=== PATIENT | male | born 1980 | race Hispanic/Latino ===

== ENCOUNTER 2019-03-31 21:27 | Emergency (ER) | payer OTHER ==
[2019-03-31 22:28] LABS: BASOPHILS % (AUTO) 0.7 % (0.0-5.0); EOSINOPHILS % (AUTO) 2.2 % (0.0-8.0); HEMATOCRIT 48.3 % (42-54); LYMPHOCYTES % (AUTO) 36.1 % (21.0-51.0); MEAN CORPUSCULAR HEMOGLOBIN 30.6 pg (27.0-33.0); MEAN CORPUSCULAR HGB CONC 34.2 g/dL (32.0-36.0); MEAN CORPUSCULAR VOLUME 89.7 fL (79-99); MONOCYTES % (AUTO) 7.1 % (3.0-13.0); NEUTROPHILS % (AUTO) 53.9 % (40.0-77.0); NUCLEATED RED BLOOD CELLS 0.3 % (0.0-0.19); PLATELET COUNT (AUTO) 237 K/uL (130-400); RED BLOOD CELL COUNT(AUTO) 5.38 MIL/uL (4.50-6.20); RED CELL DISTRIBUTION WIDTH 15.2 % (11.0-15.5); WHITE BLOOD COUNT (AUTO) 9.9 K/uL (4.8-10.8)
[2019-03-31 22:42] LABS: CREATININE 0.7 mg/dL (0.5-1.5); POTASSIUM 3.1 mmol/L (3.5-5.1)
[2019-03-31 22:47] LABS: ALBUMIN 3.7 g/dL (3.5-5.0); BILIRUBIN,TOTAL 0.5 mg/dL (0.2-1.0)
[2019-03-31 22:50] LABS: APPEARANCE,URINE Clear (CLEAR); BILIRUBIN,URINE Negative (NEGATIVE); COLOR,URINE Yellow (YELLOW); GLUCOSE, URINE (UA) Negative (NEGATIVE); KETONES,URINE Negative (NEGATIVE); LEUKOCYTE ESTERASE ,URINE Negative (NEGATIVE); NITRATE,URINE Negative (NEGATIVE); OCCULT BLOOD,URINE Negative (NEGATIVE); PH,URINE 5.5 (5.0-8.0); PROTEIN,URINE Negative (NEGATIVE); UROBILINOGEN,URINE 0.2 mg/dL (0.2-1.0)
[2019-03-31] MEDS ORDERED: MAGNESIUM OXIDE 400 MG TABLET PO ONE (22:54)
[2019-03-31] MEDS ORDERED: POTASSIUM CHLORIDE 20 MEQ ERTAB PO ONE (22:54)
[2019-03-31 22:58] LABS: AMPHET/METH SCREEN,URINE NEGATIVE (NEGATIVE); BARBITURATE SCREEN, URINE NEGATIVE (NEGATIVE); BENZODIAZEPINES SCREEN,URINE NEGATIVE (NEGATIVE); CANNABINOID SCREEN,URINE NEGATIVE (NEGATIVE); COCAINE SCREEN,URINE NEGATIVE (NEGATIVE); OPIATE SCREEN,URINE NEGATIVE (NEGATIVE); PHENCYCLIDINE SCREEN,URINE NEGATIVE (NEGATIVE)
== END 2019-04-01 00:06 | disposition home or self-care (01) ==
LOC: EDH 21:27
DX: E16.2 Hypoglycemia, unspecified (principal); E87.6 Hypokalemia; K85.90 Acute pancreatitis without necrosis or infection, unspecified; R94.5 Abnormal results of liver function studies; F10.10 Alcohol abuse, uncomplicated; Y90.9 Presence of alcohol in blood, level not specified
CPT/HCPCS: 36415; 71045; 80053; 80305; 81003; 83690; 85025; 93005; 99285; G0480

== ENCOUNTER → 2019-04-23 | Outpatient (CLI) | payer OTHER | END | disposition home or self-care (01) | LOC: RAH 07:40 | PROVIDERS: ATTEND Family Medicine | DX: K76.0 Fatty (change of) liver, not elsewhere classified (principal); K85.90 Acute pancreatitis without necrosis or infection, unspecified | CPT/HCPCS: 76700 ==

== ENCOUNTER 2023-02-15 10:06 | Emergency (ER) | payer OTHER ==
[~2023-02-15] VITALS: Ht 182.9 cm; Wt 113.4 kg
[2023-02-15 10:44] LABS: BASOPHILS % (AUTO) 0.6 % (0.0-5.0); EOSINOPHILS % (AUTO) 1.8 % (0.0-8.0); LYMPHOCYTES % (AUTO) 17.8 % (21.0-51.0); MEAN CORPUSCULAR HEMOGLOBIN 30.9 pg (27.0-33.0); MEAN CORPUSCULAR HGB CONC 33.6 g/dL (32.0-36.0); MEAN CORPUSCULAR VOLUME 92.1 fL (79-99); NEUTROPHILS % (AUTO) 72.5 % (40.0-77.0); PLATELET COUNT (AUTO) 168 K/uL (130-400); RED BLOOD CELL COUNT(AUTO) 6.08 MIL/uL (4.50-6.20); RED CELL DISTRIBUTION WIDTH 14.7 % (11.0-15.5); WHITE BLOOD COUNT (AUTO) 6.6 K/uL (4.8-10.8)
[2023-02-15 10:54] LABS: CREATININE 0.9 mg/dL (0.5-1.5); POTASSIUM 4.5 mmol/L (3.5-5.1)
[2023-02-15 10:59] LABS: ALBUMIN 4.2 g/dL (3.5-5.0); TOTAL PROTEIN, SERUM 8.2 g/dL (6.0-8.3)
[2023-02-15] MEDS ORDERED: METH-662 PO (12:46)
[2023-02-15] MEDS ORDERED: METH4TAB3 PO (12:46)
[2023-02-15] MEDS ORDERED: SOLU-MEDROL 125MG VIAL IVP ONE (13:00)
[2023-02-15] MEDS ORDERED: PREDNISONE 20 MG TABLET PO ONE (14:00)
== END 2023-02-15 13:45 | disposition home or self-care (01) ==
LOC: EDH 10:06
DX: M54.31 Sciatica, right side (principal); I10 Essential (primary) hypertension
CPT/HCPCS: 36415; 72100; 80053; 85025; 85378; 93005; 93971

== ENCOUNTER 2024-02-20 10:30 | Emergency (ER) | payer OTHER ==
[~2024-02-20] VITALS: Ht 182.9 cm; Wt 122.5 kg
[~2024-02-20 10:30] MED LIST: METH-662 PO; METH4TAB3 PO
[2024-02-20 11:11] LABS: BASOPHILS # (AUTO) 0.05 K/uL (0.00-0.20); BASOPHILS % (AUTO) 0.7 % (0.0-5.0); EOSINOPHILS # (AUTO) 0.06 K/uL (0.00-0.70); EOSINOPHILS % (AUTO) 0.9 % (0.0-8.0); HEMATOCRIT 56.1 % (42-54); IMMATURE GRANULOCYTE ABSOLUTE 0.01 K/uL (0-1); LYMPHOCYTES # (AUTO) 1.3 K/uL (1.0-4.8); LYMPHOCYTES % (AUTO) 19.1 % (21.0-51.0); MEAN CORPUSCULAR HEMOGLOBIN 33.1 pg (27.0-33.0); MEAN CORPUSCULAR HGB CONC 35.3 g/dL (32.0-36.0); MEAN CORPUSCULAR VOLUME 93.7 fL (79-99); MONOCYTES # (AUTO) 0.5 K/uL (0.1-1.0); MONOCYTES % (AUTO) 7.4 % (3.0-13.0); NEUTROPHILS % (AUTO) 71.8 % (40.0-77.0); PLATELET COUNT (AUTO) 196 K/uL (130-400); RED BLOOD CELL COUNT(AUTO) 5.99 MIL/uL (4.50-6.20); WHITE BLOOD COUNT (AUTO) 6.9 K/uL (4.8-10.8)
[2024-02-20 11:13] LABS: CREATININE 0.9 mg/dL (0.5-1.3); POTASSIUM 4.2 mmol/L (3.5-5.1)
[2024-02-20 11:17] LABS: ALBUMIN 3.8 g/dL (3.5-5.0); BILIRUBIN,TOTAL 1.2 mg/dL (0.2-1.0); TOTAL PROTEIN, SERUM 7.9 g/dL (6.0-8.3)
[2024-02-20 12:14] LABS: APPEARANCE,URINE CLEAR (CLEAR); BILIRUBIN,URINE NEGATIVE (NEGATIVE); COLOR,URINE YELLOW (YELLOW); GLUCOSE, URINE (UA) NEGATIVE (NEGATIVE); KETONES,URINE NEGATIVE (NEGATIVE); LEUKOCYTE ESTERASE ,URINE NEGATIVE Leu/uL (NEGATIVE); NITRATE,URINE NEGATIVE (NEGATIVE); OCCULT BLOOD,URINE NEGATIVE (NEGATIVE); PH,URINE 7.5 (5.0-8.0); PROTEIN,URINE NEGATIVE (NEGATIVE); UROBILINOGEN,URINE 3 mg/dL (0.2-1.0)
[2024-02-20 12:15] LABS: ADD UA MICROSCOPIC YES
[2024-02-20 12:16] LABS: SQUAMOUS EPITHELIAL CELL,UR RARE /HPF (0-2); WBC,URINE 0-1 /HPF (0-1)
[2024-02-20 13:39] VITALS: BP 160/90; PULSE 80; RESP 16; O2SAT 98
== END 2024-02-20 13:46 | disposition home or self-care (01) ==
LOC: EDH 10:30
DX: I10 Essential (primary) hypertension (principal); Z79.899 Other long term (current) drug therapy
CPT/HCPCS: 36415; 71045; 80053; 81001; 84484; 85025; 93005

== ENCOUNTER 2025-02-19 12:36 | Emergency (ER) | payer OTHER ==
[~2025-02-19] VITALS: Ht 182.9 cm; Wt 135.6 kg
--- NOTE | 2025-02-19 12:51 | ERN ---
ED Note History of Present Illness Stated Complaint: CHEST TIGHTNESS Chief Complaint: Hypertension Time Seen by MD: 12:39 Dictation: PATIENT IS A 44-YEAR-OLD MALE COMING IN TODAY WITH COMPLAINTS OF HYPERTENSION ON HIS BLOOD PRESSURE AT HOME SHORTNESS A BREATH IN HIS CHEST FEELING TIGHT. HE STATES THE ONSET OF THE CHEST TIGHTNESS WAS EARLIER THIS MORNING. STATES HE DOES HAVE A HISTORY OF HYPERTENSION AND IS TAKING SOME MEDICATIONS AT A LEFTOVER FROM HIS PRIMARY CARE DOCTOR WHO LAST YEAR. HE ALSO STATES HE WENT TO A [facility] ON TUESDAY FEELING THE SAME WAY AND HAD SWABS DONE FOR FLU COVID AND STREP WITH A CHEST X-RAY. WAS GIVEN SOME STEROIDS AND BREATHING TREATMENTS AND STATES HE FELT BETTER ON TUESDAY. SAID THEN TUESDAY HE STARTED FEELING WORSE. Allergies: Coded Allergies: No Known Drug Allergies (Unverified Allergy, Unknown, 04/01/19) Home Meds Active Scripts Methocarbamol (Robaxin) 750 Mg Tab, 750 MG PO TID for 7 Days, #21 TAB Prov:DEEDEE THOMASON MD 02/15/23 Methylprednisolone (Medrol) 4 Mg Tab.ds.pk, 4 MG PO as directed on pack, #1 PACK Prov:DEEDEE THOMASON MD 02/15/23 Past Medical History Past Medical History: Hypertension, Other Additional Past Medical Hx: SLEEP APNEA Surgical History: None RN Note Reviewed/Agreed w/PFSH: Yes Review of System Dictation CONSTITUTIONAL: NEGATIVE EXCEPT FOR HPI HEAD/FACE: NEGATIVE EXCEPT FOR HPI EENT: NEGATIVE EXCEPT FOR HPI RESPIRATORY: NEGATIVE EXCEPT FOR HPI SOB/CHEST TIGHTNESS GASTROINTESTINAL/ABDOMINAL: NEGATIVE EXCEPT FOR HPI GENITOURINARY: NEGATIVE EXCEPT FOR HPI MUSCULOSKELETAL: NEGATIVE EXCEPT FOR HPI INTEGUMENTARY: NEGATIVE EXCEPT FOR HPI NEUROLOGICAL/PSYCH: NEGATIVE EXCEPT FOR HPI HEMATOLOGIC/LYMPHATIC: NEGATIVE EXCEPT FOR HPI ALL SYSTEMS NEGATIVE, EXCEPT NOTED ABOVE. 13 POINT REVIEW OF SYSTEMS ASSESSED AND ALL NEGATIVE EXCEPT FOR ABOVE. Initial Vital Sign VS Vital Signs Date Time Temp Pulse Resp B/P (MAP) Pulse Ox O2 Delivery O2 Flow Rate FiO2 02/19/25 12:38 98.8 105 20 183/105 95 Room Air 0 02/19/25 13:11 21 Physical Exam Dictation VITAL SIGNS REVIEWED GENERAL APPEARANCE: ALERT, ORIENTED X 3, MODERATE ACUTE DISTRESS, WELL DEVELOPED, NOURISHED. OBESE HEAD AND FACE: NON-TRAUMATIC. EYES: PERRL, PINK CONJUNCTIVAS, EYELID NO TRAUMA, ANTERIOR CHAMBER WITH ARCUS SENILIS. EARS: PINNAS INTACT AND NO SIGNS OF TRAUMA OR ERYTHEMA EAR CANALS CLEAR AND NO DISCHARGE TM NO ERYTHEMA NOSE: NO DISCHARGE, NO BLEEDING. OROPHARYNX: MOUTH NORMAL, TONGUE PINK, PHARYNX CLEAR,NO ERYTHEMA, TONSILS NO EXUDATES, NO ABSCESSES NOTED, MUCOUS MEMBRANE MOIST NECK: SUPPLE, NON-TENDER, NO THYROMEGALY, NO MASSES, NO JVD, NO BRUITS BREAST:DEFERRED CHEST:NO TENDERNESS, NO CREPITUS, NO PARADOXICAL MOVEMENT, NO RETRACTIONS LUNGS:CLEAR, BILATERAL BREATH SOUNDS CLEAR TO AUSCULTATION/DIMINISHED THROUGHOUT. HEART: REGULAR RATE, REGULAR RHYTHM, NO MURMUR, NO GALLOPS VASCULAR: NO PERIPHERAL EDEMA, ABDOMEN: SOFT, POSITIVE BOWEL SOUNDS, NONDISTENDED, NO GUARDING, NONTENDER, NO REBOUND, NO MASSES NO HEPATOMEGALY, NO SPLENOMEGALY, NO MONTGOMERY'S SIGN, NO HERNIAS. RECTAL: DEFERRED GENITAL: DEFERRED NEUROLOGICAL: NORMAL SPEECH, MOTOR FUNCTION INTACT, SENSORY FUNCTION INTACT MUSCULOSKELETAL: NECK NONTENDER, FULL RANGE OF MOTION, BACK NONTENDER, FULL RANG E OF MOTION, EXTREMITIES: NONTENDER, FULL RANGE OF MOTION SKIN: COLOR PINK, DRY, NO TURGOR, NO RASH, NO LACERATIONS, NO ABRASIONS, NO CONTUSIONS. LYMPHATIC: DEFERRED Results (Laboratory/Radiology) Laboratory/Radiology Laboratory Tests Test 02/19/25 12:56 White Blood Count 8.0 K/uL (4.8-10.8) Red Blood Count 5.40 MIL/uL (4.50-6.20) Hemoglobin 18.2 g/dL (14.0-18.0) H Hematocrit 53.2 % (42-54) Mean Corpuscular Volume 98.5 fL (79-99) Mean Corpuscular Hemoglobin 33.7 pg (27.0-33.0) H Mean Corpuscular Hemoglobin Concent 34.2 g/dL (32.0-36.0) Red Cell Distribution Width 15.8 % (11.0-15.5) H Platelet Count 180 K/uL (130-400) Mean Platelet Volume 9.3 fL (7.5-10.5) Immature Granulocyte % (Auto) 0.3 % (0-1) Neutrophils (%) (Auto) 67.2 % (40.0-77.0) Lymphocytes (%) (Auto) 22.7 % (21.0-51.0) Monocytes (%) (Auto) 7.9 % (3.0-13.0) Eosinophils (%) (Auto) 1.4 % (0.0-8.0) Basophils (%) (Auto) 0.5 % (0.0-5.0) Neutrophils # (Auto) 5.4 K/uL (1.8-7.7) Lymphocytes # (Auto) 1.8 K/uL (1.0-4.8) Monocytes # (Auto) 0.6 K/uL (0.1-1.0) Eosinophils # (Auto) 0.11 K/uL (0.00-0.70) Basophils # (Auto) 0.04 K/uL (0.00-0.20) Absolute Immature Granulocyte (auto 0.02 K/uL (0-1) Nucleated Red Blood Cells 0.0 % (0.0-0.19) Sodium Level 141 mmol/L (136-145) Potassium Level 3.7 mmol/L (3.5-5.1) Chloride Level 103 mmol/L (101-111) Carbon Dioxide Level 33 mmol/L (21-32) H Blood Urea Nitrogen 12 mg/dL (7-18) Creatinine 1.0 mg/dL (0.5-1.3) Glomerular Filtration Rate Calc 96 mL/min (>90) Random Glucose 129 mg/dL (70-105) H Total Calcium 8.6 mg/dL (8.5-10.1) Magnesium Level 2.10 mg/dL (1.80-2.40) Troponin I High Sensitivity 9 ng/L (4-75) B-Type Natriuretic Peptide 31 pg/mL (0-100) Labs Reviewed?: Yes EKG Comment: EKG NORMAL SINUS RHYTHM/HEART RATE 93/AXIS NORMAL TEST NO ED Course ED Course Orders Procedure Category Date Status Time Cbc With Differential LAB 02/19/25 Complete 12:43 B-Type Natriuretic LAB 02/19/25 Complete Peptide 12:43 12 Lead Ekg Tracing- EKG 02/19/25 Complete Technical 12:43 Magnesium LAB 02/19/25 Complete 12:43 Troponin I High LAB 02/19/25 Complete Sensitivity 12:43 Basic Metabolic Panel LAB 02/19/25 Complete 12:43 Aspirin 325mg Tab PHA 02/19/25 Complete (Aspirin 325mg Tab) 13:00 Nitroglycerin 0.4mg PHA 02/19/25 In Process Sl Tab (Nitrostat) 13:00 Methylprednisolone PHA 02/19/25 Complete Succ 125mg (Solu-Medr 13:00 Albuterol 0.083% PHA 02/19/25 Complete 2.5mg/3ml (Proventil 13:00 Chest 1vw RAD 02/19/25 Resulted 13:23 Current Medications Medications (Trade) Dose Ordered Sig/Jasmeet Route PRN Reason Start Time Stop Time Status Last Admin Dose Admin Albuterol Sulfate (Proventil 0.083% 2.5mg/3ml) 2.5MG ONCE ONCE IH 02/19/25 13:00 02/19/25 13:01 DC 02/19/25 13:25 Aspirin (Aspirin 325mg Tab) 325 mg ONCE ONCE PO 02/19/25 13:00 02/19/25 13:01 DC 02/19/25 12:54 Methylprednisolone Sodium Succinate (Solu-medROL 125MG) 125 mg ONCE ONCE IVP 02/19/25 13:00 02/19/25 13:01 DC 02/19/25 12:56 Nitroglycerin (Nitrostat) 0.4 mg AD PRN SL CHEST PAIN 02/19/25 13:00 03/21/25 12:59 02/19/25 12:54 Vital Signs Date Time Temp Pulse Resp B/P (MAP) Pulse Ox O2 Delivery O2 Flow Rate FiO2 02/19/25 13:25 94 18 02/19/25 13:11 105 20 124/67 95 Room Air* 0 21 02/19/25 12:38 98.8 105 20 183/105 95 Room Air 0 1400/PATIENT INFORMED OF CHEST X-RAY LABS EKG AND INTERVENTIONS FOR SHORTNESS A BREATH. HE STATES HE HAS A TOBACCO ABUSER AND HAS BEEN TRYING TO CUT BACK HOWEVER CONTINUES TO SMOKE. 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 HURD WITH BIOPSY. HE WAS ADVISED TO STOP SMOKING. CONTINUE USE ALBUTEROL AND WE WILL BE GIVEN BUDESONIDE AND LEVOFLOXACIN TO COVER MYCOPLASMA HEART Score Response (Comments) Value History: Low suspicion (0) 0 EKG: Normal 0 Risk Factors: 1-2 risk factors (+1) 1 Initial Troponin: Normal limit (0) 0 Total 1 Medical Decision Making MDM MDM: DIFFERENTIAL DIAGNOSIS: AMMONIA/BRONCHITIS/SARS COVID/ELECTROLYTE IMBALANCE/DEHYDRATION/ACS/AMI/HYPERTENSION/ RATIONALE: TESTS CONSIDERED AND ORDERED SECONDARY TO SHARED DECISION MAKING INCLUDE: CHF EKG/LABS/RADIOLOGY PREVIOUS OUTSIDE RECORDS REVIEWED: OLD ER VISITS. RISK OF COMPLICATION AND/OR MORBIDITY OR MORTALITY OF PATIENT MANAGEMENT: NONE MEDICATIONS-PER MEDICATION RECONCILIATION NEED FOR HOSPITALIZATION: PATIENT DOES NOT MEET CRITERIA FOR HOSPITALIZATION. NO NEED FOR EMERGENCY MAJOR/MINOR SURGERY: NO THERE ARE NO SOCIAL CONCERNS WITH THIS PATIENT. TOBACCO ABUSE PRESCRIPTION DRUG MANAGEMENT LEVOFLOXACIN/BUDESONIDE PRESCRIPTIONS WILL INCLUDE SYMPTOMATIC CARE PATIENT'S PRIOR EXTERNAL MEDICAL RECORDS FROM OTHER ER VISITS WERE REVIEWED BY ME INDICATED. PRIOR TESTING AND RESULTS FROM PREVIOUS VISITS WERE REVIEWED. PRIOR TESTS WERE TAKEN INTO ACCOUNT WITH MEDICAL DECISION MAKING AND RESOURCE UTILIZATION, INDEPENDENT HISTORIAN/HISTORIANS WERE USED TO OBTAIN COMPLETE MEDICAL HISTORY. I INDEPENDENTLY INTERPRETED THE TEST THAT WERE PERFORMED, RESULTS WERE REVIEWED BY ME AND CONSIDERED FINDINGS ON RADIOLOGY IF ORDERED. MEDICAL MANAGEMENT AND EXAMINATION INTERPRETATION DISCUSSIONS WERE HAD BY ME WITH OTHER QUALIFIED HEALTHCARE PROFESSIONALS INDICATED FOR THE PATIENT'S CARE. DX & DISP Disposition: Discharge Departure Impression: Primary Impression: Acute viral bronchitis Additional Impressions: Hyperglycemia, Dyspnea on exertion, Tobacco abuse Condition: Stable Scripts Budesonide (Pulmicort Flexhaler) 90 Mcg Aer.pow.ba 1 PUFF IH BID for 10 Days, #1 EACH 0 Refills Prov: KELIN SOTO MEDICAL SECRETARY TEACHER 02/19/25 Levofloxacin (Levofloxacin) 500 Mg Tablet 1 TAB PO DAILY for 10 Days, #10 TAB 0 Refills Prov: KELIN SOTO MEDICAL SECRETARY TEACHER 02/19/25 Additional Instructions: FOLLOW-UP WITH PRIMARY CARE PROVIDER IN 1 TO 2 DAYS. TAKE MEDICATIONS DIRECTED HERE IN THE EMERGENCY ROOM. OKAY TO CONTINUE HOME MEDICATIONS UNLESS OTHERWISE DISCUSSED DURING YOUR VISIT IN THE EMERGENCY ROOM TODAY. RETURN TO YOUR NEAREST EMERGENCY ROOM IF SYMPTOMS WORSEN OR IF THERE IS NO IMPROVEMENT. CALL 911 IF YOU NEED IMMEDIATE ASSISTANCE. TAKE TYLENOL OR MOTRIN [id number] NEEDED AND IF NO CONTRAINDICATIONS ARE PRESENT. INCREASE ORAL HYDRATION. A WOUND CULTURE OR URINE CULTURE WAS ORDERED HERE IN THE EM ERGENCY ROOM DEPARTMENT PLEASE FOLLOW-UP WITH PRIMARY CARE PROVIDER AND ADVISE THEM TO GET REPEAT PORTS FROM OUR FACILITY. IF YOU HAD ANY INESSA WRAP/SPLINTS THAT WERE APPLIED HERE, PLEASE DO NOT REMOVE THEM UNTIL YOU SEE YOUR PRIMARY CARE OR SPECIALTY. CONTINUE USING YOUR ALBUTEROL INHALER EVERY 4 HOURS WHILE AWAKE FOR THE NEXT THREE DAYS. USE PULMICORT INHALER DIRECTED FOR THE NEXT 10 DAYS TWICE A DAY. TAKE LEVAQUIN DIRECTED UNTIL GONE. CONTINUE ALL OTHER MEDICATIONS FROM YOUR VISIT TO THE URGENT CARE. FOLLOW UP WITH ONE OF THE DOCTORS ON THE LIST PROVIDED YOU IN THE NEXT SEVERAL DAYS FOR MANAGEMENT OF YOUR HIGH BLOOD PRESSURE AND FOLLOW UP Referrals: ASAEL HUNTER MEDICAL SECRETARY TEACHER (PCP) Time of Disposition: 13:58 I have reviewed the case, and I agree with, Diagnosis and Plan KELIN SOTO NP Feb 19, 2025 12:51
[2025-02-19] MEDS: NITROGLYCERIN 0.4 MG SL TAB SL PRN (12:54)
[2025-02-19] MEDS: ASPIRIN 325MG TAB PO ONE (12:54)
[2025-02-19] MEDS: Solu-medROL 125MG VIAL IVP ONE (12:56)
[2025-02-19 13:01] LABS: BASOPHILS # (AUTO) 0.04 K/uL (0.00-0.20); BASOPHILS % (AUTO) 0.5 % (0.0-5.0); EOSINOPHILS # (AUTO) 0.11 K/uL (0.00-0.70); EOSINOPHILS % (AUTO) 1.4 % (0.0-8.0); HEMATOCRIT 53.2 % (42-54); IMMATURE GRANULOCYTE ABSOLUTE 0.02 K/uL (0-1); LYMPHOCYTES # (AUTO) 1.8 K/uL (1.0-4.8); LYMPHOCYTES % (AUTO) 22.7 % (21.0-51.0); MEAN CORPUSCULAR HEMOGLOBIN 33.7 pg (27.0-33.0); MEAN CORPUSCULAR HGB CONC 34.2 g/dL (32.0-36.0); MEAN CORPUSCULAR VOLUME 98.5 fL (79-99); MONOCYTES # (AUTO) 0.6 K/uL (0.1-1.0); MONOCYTES % (AUTO) 7.9 % (3.0-13.0); NEUTROPHILS # (AUTO) 5.4 K/uL (1.8-7.7); NEUTROPHILS % (AUTO) 67.2 % (40.0-77.0); PLATELET COUNT (AUTO) 180 K/uL (130-400); RED CELL DISTRIBUTION WIDTH 15.8 % (11.0-15.5)
--- NOTE | 2025-02-19 13:01 | EKG ---
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
[2025-02-19 13:10] LABS: MAGNESIUM 2.1 mg/dL (1.80-2.40); POTASSIUM 3.7 mmol/L (3.5-5.1)
[2025-02-19 13:23] LABS: B-TYPE NATRIURETIC PEPTIDE 31 pg/mL (0-100)
[2025-02-19 13:25] VITALS: PULSE 94; RESP 18
[2025-02-19] MEDS: ALBUTEROL 0.083% 2.5 MG/3 ML INH IH ONE (13:25)
--- NOTE | 2025-02-19 13:50 | HMCIMG ---
CHEST 1VW REASON: SHORTNESS A BREATH COMPARISON: 6 02/20/2024 FINDINGS: Single view of the chest was obtained. Lungs are clear. Heart size is normal. There is no pulmonary vascular congestion. Mediastinum and bony thorax appear unremarkable. IMPRESSION: 1. Normal single view chest x-ray.
[2025-02-19] MEDS ORDERED: levoFLOXacin 500 MG TABLET PO ONE (14:00)
[2025-02-19] MEDS ORDERED: LEVO-70 PO (14:01)
[2025-02-19] MEDS ORDERED: BUDE90AE3 IH (14:01)
--- NOTE | 2025-02-19 14:02 | NUR ---
PATIENT VOICES RELIEF OF SYMPTOMS
[2025-02-19 14:04] VITALS: BP 149/88; PULSE 88; RESP 18; TEMP 98.8; O2SAT 97
== END 2025-02-19 14:14 | disposition home or self-care (01) ==
LOC: EDH 12:36
DX: J20.8 Acute bronchitis due to other specified organisms (principal); R73.9 Hyperglycemia, unspecified; R06.09 Other forms of dyspnea; I10 Essential (primary) hypertension; F17.200 Nicotine dependence, unspecified, uncomplicated; B97.89 Other viral agents as the cause of diseases classified elsewhere
CPT/HCPCS: 99285; 96374; 71045; 83735; 84484; 80048; 83880; 85025; 36415; 93005; 94640; J2919

== ENCOUNTER 2025-05-22 20:47 | Inpatient (IN) | payer OTHER ==
[~2025-05-22] VITALS: Ht 182.9 cm; Wt 130.4 kg
[~2025-05-22 20:47] MED LIST changes: +BUDE90AE3 IH; +LEVO-70 PO
[2025-05-22 21:12] LABS: IMMATURE GRANULOCYTE ABSOLUTE 0.07 K/uL (0-1); NUCLEATED RED BLOOD CELLS 0.0 % (0.0-0.19); PLATELET COUNT (AUTO) 226 K/uL (130-400); RED BLOOD CELL COUNT(AUTO) 5.26 MIL/uL (4.50-6.20); RED CELL DISTRIBUTION WIDTH 13.6 % (11.0-15.5); WHITE BLOOD COUNT (AUTO) 12.9 K/uL (4.8-10.8)
--- NOTE | 2025-05-22 21:15 | ERN ---
General Chief Complaint: Hypotension Stated Complaint: C/O ABD PAIN W/NAUSEA, CP EARLIER TODAY Time Seen by MD: 20:57 Source: patient, family History of Present Illness Initial Comments 45-year-old male with a past medical history of hypertension, obesity, and sleep apnea who comes in with severe abdominal pain, abdominal cramping and chest pain. Blood pressure measurements in the lobby of the ED showed him to be hypotensive 69/42 but normal heart rate. Patient is wondering if the hypotension is due to a recent change in his blood pressure medications. He was recently started on amlodipine. In the emergency room he is alert and oriented complaining mostly of abdominal pain tenderness especially in the flanks. He has been hypertensive over the last several days and was given clonidine once as a PRN. Timing/Duration: 24 hours Allergies: Coded Allergies: No Known Drug Allergies (Unverified Allergy, Unknown, 04/01/19) Home Meds Reported Medications Fluticasone Propion/Salmeterol (Fluticasone-Salmeterol 100-50) 100 Mcg-50 Mcg/Dose Blst.w.dev, 1 EACH IH BID 05/22/25 Trazodone HCl (Trazodone HCl) 50 Mg Tablet, 50 MG PO HS, TAB 05/22/25 Carvedilol (Coreg) 6.25 Mg Tablet, 6.25 MG PO BID, TAB 05/22/25 Amlodipine Besylate (Amlodipine Besylate) 2.5 Mg Tablet, 2.5 MG PO DAILY, TAB 05/22/25 Losartan Potassium (Losartan Potassium) 100 Mg Tablet, 100 MG PO BID, TAB 05/22/25 Hydrochlorothiazide (Hydrochlorothiazide) 25 Mg Tablet, 25 MG PO DAILY, TAB 05/22/25 Clonidine HCl (Clonidine HCl) 0.1 Mg Tablet, 0.1 MG PO TIDP PRN for IF SBP GREATER THAN 150, TAB 05/22/25 Discontinued Scripts Budesonide (Pulmicort Flexhaler) 90 Mcg Aer.pow.ba, 1 PUFF IH BID for 10 Days, #1 EACH 0 Refills Prov:KELIN SOTO NP 02/19/25 Levofloxacin (Levofloxacin) 500 Mg Tablet, 1 TAB PO DAILY for 10 Days, #10 TAB 0 Refills Prov:KELIN SOTO NP 02/19/25 Methocarbamol (Robaxin) 750 Mg Tab, 750 MG PO TID for 7 Days, #21 TAB Prov:DEEDEE THOMASON MD 02/15/23 Methylprednisolone (Medrol) 4 Mg Tab.ds.pk, 4 MG PO as directed on pack, #1 PACK Prov:DEEDEE THOMASON MD 02/15/23 Past Medical History Past Medical History: Hypertension, Other Medical History Other: HX OF SLEEP APNEA Past Surgical History: None Constitutional: (-) chills, (-) diaphoresis, (-) fever, (-) malaise, (-) weakness, (-) other documentation EENTM: (-) eye pain, (-) blurred vision, (-) tearing, (-) double vision, (-) ear pain, (-) ear discharge, (-) nose pain, (-) nose congestion, (-) throat pain, (-) Throat swelling, (-) mouth pain, (-) tooth pain, (-) mouth swelling, (-) other documentation Respiratory: (-) cough, (-) orthopnea, (-) short of breath, (-) stridor, (-) wheezing, (-) other documentation Cardiovascular: (+) chest pain Gastrointestinal/Abdominal: (+) nausea, (+) diarrhea, (+) abdominal pain Genitourinary: (-) penile discharge, (-) dysuria, (-) frequency, (-) hematuria, (-) pain, (-) other documentation Musculoskeletal: (+) Flank Pain Skin: (-) laceration, (-) contusion, (-) abrasion, (-) abscess, (-) rash, (-) change in color, (-) change in hair, (-) change in nails, (-) diaphoresis, (-) dryness, (-) other documentation Neuro: (-) altered mental status, (-) headache, (-) syncope, (-) paralysis, (-) numbness, (-) seizure, (-) pre-existing deficit, (-) tremors, (-) weakness, (-) dizziness, (-) slurred speech, (-) vertigo, (-) other documentation Physical Exam General Appearance: (+) moderate distress Orientation: (+) alert, (+) oriented x 3 Head/Face Trauma: No Eye: bilateral eye normal inspection, bilateral eye PERRL, bilateral eye EOMI Ear, Nose, Throat: (+) hearing grossly normal, (+) normal ENT inspection, (+) moist mucous membraine Neck: (+) normal inspection, (+) supple, (+) full range of motion Respiratory: (+) chest non-tender, (+) lungs clear, (+) well ventilated Heart: (+) regular, (+) no gallop Vascular: (+) no edema, (+) normal peripheral pulse, (+) no JVD Gastrointestinal: (+) soft, (+) bowel sound present, (+) distended, (+) tender Results Laboratory and Microbiology Lab and Micro Result Laboratory Tests Test 05/22/25 21:05 05/22/25 22:51 White Blood Count 12.9 K/uL (4.8-10.8) H Red Blood Count 5.26 MIL/uL (4.50-6.20) Hemoglobin 17.9 g/dL (14.0-18.0) Hematocrit 50.4 % (42-54) Mean Corpuscular Volume 95.8 fL (79-99) Mean Corpuscular Hemoglobin 34.0 pg (27.0-33.0) H Mean Corpuscular Hemoglobin Concent 35.5 g/dL (32.0-36.0) Red Cell Distribution Width 13.6 % (11.0-15.5) Platelet Count 226 K/uL (130-400) Mean Platelet Volume 9.6 fL (7.5-10.5) Immature Granulocyte % (Auto) 0.5 % (0-1) Neutrophils (%) (Auto) 63.3 % (40.0-77.0) Lymphocytes (%) (Auto) 22.1 % (21.0-51.0) Monocytes (%) (Auto) 10.7 % (3.0-13.0) Eosinophils (%) (Auto) 2.9 % (0.0-8.0) Basophils (%) (Auto) 0.5 % (0.0-5.0) Neutrophils # (Auto) 8.2 K/uL (1.8-7.7) H Lymphocytes # (Auto) 2.9 K/uL (1.0-4.8) Monocytes # (Auto) 1.4 K/uL (0.1-1.0) H Eosinophils # (Auto) 0.38 K/uL (0.00-0.70) Basophils # (Auto) 0.07 K/uL (0.00-0.20) Absolute Immature Granulocyte (auto 0.07 K/uL (0-1) Nucleated Red Blood Cells 0.0 % (0.0-0.19) Sodium Level 123 mmol/L (136-145) L Potassium Level 3.8 mmol/L (3.5-5.1) Chloride Level 84 mmol/L (101-111) *L Carbon Dioxide Level 33 mmol/L (21-32) H Blood Urea Nitrogen 28 mg/dL (7-18) H Creatinine 2.1 mg/dL (0.5-1.3) H Glomerular Filtration Rate Calc 39 mL/min (>90) Random Glucose 91 mg/dL (70-105) Lactic Acid Level 1.8 mmol/L (0.8-2.5) Total Calcium 9.1 mg/dL (8.5-10.1) Total Bilirubin 1.2 mg/dL (0.2-1.0) H Aspartate Amino Transf (AST/SGOT) 69 U/L (10-37) H Alanine Aminotransferase (ALT/SGPT) 70 U/L (12-78) Alkaline Phosphatase 77 U/L (50-136) Troponin I High Sensitivity 7 ng/L (4-75) Total Protein 8.0 g/dL (6.0-8.3) Albumin 3.9 g/dL (3.5-5.0) Procalcitonin 0.49 ng/mL (0.05-0.5) Urine Color LIGHT-YELLOW (YELLOW) Urine Appearance CLEAR (CLEAR) Urine pH 5.5 (5.0-8.0) Urine Specific [place] 1.004 (1.001-1.031) Urine Protein NEGATIVE mg/dL (NEGATIVE) Urine Glucose (UA) NEGATIVE mg/dL (NEGATIVE) Urine Ketones NEGATIVE mg/dL (NEGATIVE) Urine Occult Blood NEGATIVE (NEGATIVE) Urine Nitrate NEGATIVE (NEGATIVE) Urine Bilirubin NEGATIVE mg/dL (NEGATIVE) Urine Urobilinogen 0.2 mg/dL (0.2-1.0) Urine Leukocyte Esterase NEGATIVE Luz/uL MDM MDM: Differential diagnosis: Intra-abdominal catastrophe such as peptic ulcer perforation, gastroenteritis, electrolyte abnormalities, dehydration, Rationale: Tests considered and ordered secondary to shared decision making include: Previous outside records reviewed: Old ER visits. Risk of complication and/or morbidity or mortality of patient management: None Medications-Per medication reconciliation Need for hospitalization: Patient does meet criteria for hospitalization. Need for emergency major/minor surgery: No There are no social concerns with this patient. Prescription drug management Prescriptions will include symptomatic care Patient's prior external medical records from other ER visits were reviewed by me as indicated. Prior testing and results from previous visits were reviewed. Prior tests were taken into account with medical decision making and resource utilization, independent historian/historians were used to obtain complete medical history. I independently interpreted the test that were performed, results were reviewed by me and considered findings on radiology if ordered. Upright chest x-ray shows no free air CT scan of abdomen shows no free air, hepatomegaly, normal pancreas. Electrolytes show possible fatty liver with a transaminitis and an elevated bilirubin, in addition patient has hyponatremia hypochloremia and has an acute kidney injury with elevated BUN and creatinine. Patient's pain has resolved with fluids and and pain medications. Now he feels just tired. I will give him another bolus of normal saline. I have discussed the patient with the hospitalists and they have agreed to admit him. ED Course Orders Procedure Category Date Status Time 12 Lead Ekg Tracing- EKG 05/22/25 Logged Technical 20:58 Cbc With Differential LAB 05/22/25 Complete 20:58 Comprehensive LAB 05/22/25 Complete Metabolic Panel 20:58 Lactic Acid LAB 05/22/25 Complete 20:58 Procalcitonin LAB 05/22/25 Complete 20:58 Troponin I High LAB 05/22/25 Complete Sensitivity 20:58 Urinalysis Profile LAB 05/22/25 Complete 20:58 Lactated Ringers PHA 05/22/25 Complete 1000ml (Lactated 20:58 Morphine 2mg Syg PHA 05/22/25 Complete (Morphine 2mg Syg) 21:00 Chest 1vw RAD 05/22/25 Resulted 21:15 Orphenadrine Citrate PHA 05/22/25 Complete (Norflex) 21:30 Ondansetron 4mg Inj PHA 05/22/25 Complete (Zofran 4mg Inj) 21:30 0.9%Nacl 1000ml (Ns PHA 05/22/25 Complete 1000ml) 23:00 Ct Abdomen W/O CT 05/22/25 Taken Contrast 23:13 Nicotine 21mg Patch PHA 05/22/25 Complete (Nicoderm) 23:30 Ct Abdomen/Pelvis W/O CT 05/23/25 Logged Contrast 00:05 Current Medications Medications (Trade) Dose Ordered Sig/Jasmeet Route PRN Reason Start Time Stop Time Status Last Admin Dose Admin Lactated Ringer's (Lactated Ringers 1000ml) 1,000 ml BOLUS STAT IV 05/22/25 20:58 05/22/25 21:01 DC 05/22/25 21:19 Morphine Sulfate (morPHINE 2MG SYG) 2 mg ONCE ONCE IVP 05/22/25 21:00 05/22/25 21:01 DC 05/22/25 21:19 Nicotine (Nicoderm) 21 mg ONCE ONCE TD 05/22/25 23:30 05/22/25 23:32 DC Ondansetron HCl (zoFRAN 4MG INJ) 4 mg ONCE ONCE IVP 05/22/25 21:30 05/22/25 21:31 DC 05/22/25 21:22 Orphenadrine Citrate (Norflex) 60 mg ONCE ONCE IVP 05/22/25 21:30 05/22/25 21:31 DC 05/22/25 21:22 Sodium Chloride 1,000 ml @ 0 mls/hr ONCE ONCE IV 05/22/25 23:00 05/22/25 23:01 DC Vital Signs Date Time Temp Pulse Resp B/P (MAP) Pulse Ox O2 Delivery O2 Flow Rate FiO2 05/23/25 00:02 98.4 64 18 99/58 99 Room Air* 0 05/22/25 23:05 98.4 76 19 106/52 99 Room Air* 0 05/22/25 21:48 98.4 82 20 86/48 97 Room Air* 0 05/22/25 21:14 98.6 78 18 103/52 98 Room Air* 0 05/22/25 20:49 97.3 76 20 69/42 94 Room Air DX & DISP Disposition: Inpatient Departure Impression: Primary Impression: Episode of hypertension Additional Impressions: Tobacco abuse, Acute kidney injury, Transaminitis, Hyperbilirubinemia Condition: Stable Referrals: HOLDEN AUSTIN MD (PCP) KATHERINE RANDALL MD May 22, 2025 21:15
[2025-05-22] MEDS: LACTATED RINGERS 1000ML IV STA (21:19)
[2025-05-22] MEDS: ORPHENADRINE 60MG/2ML IVP ONE (21:22)
[2025-05-22 21:39] LABS: ASPARTATE AMINOTRANSFERASE 69.0 U/L (10-37); CREATININE 2.1 mg/dL (0.5-1.3); GLOMERULAR FILTR. RATE CALC 39.0 mL/min (>90); GLUCOSE,RANDOM 91.0 mg/dL (70-105); SODIUM SERUM 123.0 mmol/L (136-145); TOTAL PROTEIN, SERUM 8.0 g/dL (6.0-8.3); UREA NITROGEN, BLOOD 28.0 mg/dL (7-18)
[2025-05-22] MEDS ORDERED: HYDR25TA PO (21:43)
[2025-05-22] MEDS ORDERED: LOSA100T59 PO (21:43)
[2025-05-22] MEDS ORDERED: CLON0.1T PO (21:43)
[2025-05-22] MEDS ORDERED: CARV6.2579 PO (21:45)
[2025-05-22] MEDS ORDERED: AMLO2.5T4 PO (21:45)
[2025-05-22] MEDS ORDERED: TRAZ-185 PO (21:45)
[2025-05-22] MEDS ORDERED: FLUT1BLS11 IH (21:46)
--- NOTE | 2025-05-22 22:39 | HMCIMG ---
EXAM: CR Chest, 1 view CLINICAL HISTORY: Abdominal pain. COMPARISON: Radiograph of the chest dated 02/19/2025. FINDINGS: The lungs show no infiltrates or other acute findings. No pleural effusion or pneumothorax. The cardiomediastinal silhouette is within normal limits. No acute osseous abnormality. No free air under the diaphragm. IMPRESSION: No acute cardiopulmonary process is evident. No free air under the diaphragm. Compared to the prior study, there is no significant interval change. /[place]
[2025-05-22 23:18] LABS: APPEARANCE,URINE CLEAR (CLEAR); GLUCOSE, URINE (UA) NEGATIVE (NEGATIVE); LEUKOCYTE ESTERASE ,URINE NEGATIVE Leu/uL (NEGATIVE); NITRATE,URINE NEGATIVE (NEGATIVE); OCCULT BLOOD,URINE NEGATIVE (NEGATIVE)
[2025-05-22 23:24] LABS: ADD UA MICROSCOPIC NO
[2025-05-22] MEDS: NICOTINE 21 MG/ 24 HR PATCH TD ONE (23:30)
[2025-05-23] MEDS: 0.9%NACL 1000ML 1,000 ML IV ONE ×2 (00:24→02:25)
[2025-05-23 00:45] LABS: CREATININE 1.1 mg/dL (0.5-1.3); GLOMERULAR FILTR. RATE CALC 85.0 mL/min (>90); GLUCOSE,RANDOM 85.0 mg/dL (70-105); SODIUM SERUM 131.0 mmol/L (136-145); UREA NITROGEN, BLOOD 19.0 mg/dL (7-18)
--- NOTE | 2025-05-23 01:23 | HMCIMG ---
EXAM: CT Abdomen without IV contrast. CLINICAL HISTORY: Abdominal pain. Elevated LFTs and lipase. TECHNIQUE: Thin collimated axial CT images of the abdomen and pelvis were obtained with sagittal and coronal reformatted images also submitted. CT scan is done according to ALARA (As Low As Reasonably Achievable). CONTRAST: None. COMPARISON: None. FINDINGS: Unremarkable visualized lung parenchyma. No focal abnormality within the gallbladder, pancreas, spleen, adrenals, or kidneys. Mild fatty liver. Mildly dilated proximal jejunal loops measure up to 3.2 cm in diameter. No acute appendicitis. No lymphadenopathy. No free fluid. Mild calcific atherosclerotic disease in the abdominal aorta. There is no acute osseous abnormality. Mild thoracolumbar spondylosis. IMPRESSIONS: Mildly dilated proximal jejunal loops measure up to 3.2 cm in diameter. The differential could be mild jejunitis or early changes of jejunal obstruction. Recommend a barium follow-through study for further evaluation. No acute pancreatitis. Mild fatty liver. /[place]
[2025-05-23 01:34] LABS: ASPARTATE AMINOTRANSFERASE 64.0 U/L (10-37); CREATININE 1.5 mg/dL (0.5-1.3); GLOMERULAR FILTR. RATE CALC 59.0 mL/min (>90); GLUCOSE,RANDOM 99.0 mg/dL (70-105); SODIUM SERUM 126.0 mmol/L (136-145); TOTAL PROTEIN, SERUM 6.9 g/dL (6.0-8.3); UREA NITROGEN, BLOOD 23.0 mg/dL (7-18)
--- NOTE | 2025-05-23 02:26 | HMCIMG ---
EXAM: CT Abdomen and Pelvis without IV contrast. CLINICAL HISTORY: Pain in the abdomen. TECHNIQUE: Thin collimated axial CT images of the abdomen and pelvis were obtained, with sagittal and coronal reformatted images also submitted. A CT scan is done according to ALARA (As Low As Reasonably Achievable). CONTRAST: None. COMPARISON: CT scan of the abdomen and pelvis. 05/22/2025 FINDINGS: Unremarkable visualized lung parenchyma. There is no focal abnormality appreciated within the liver, gallbladder, pancreas, spleen, adrenals, or kidneys. Mild fatty liver. Redemonstrated is mild thickening and prominence of the proximal jejunal loops measuring up to 3 cm. The appendix is unremarkable. There is no abnormality within the urinary bladder. Unremarkable reproductive organs. No lymphadenopathy. No free fluid. No pneumoperitoneum. Mild calcific atherosclerotic disease in the abdominal vessels. There is no acute osseous abnormality. Mild thoracolumbar spondylosis. IMPRESSIONS: Redemonstrated is mild thickening and prominence of the proximal jejunal loops measuring up to 3 cm, concerning for jejunitis of early obstruction. Recommended barium follow-through examination for further evaluation. Mild fatty liver. /[place]
[2025-05-23] MEDS: 0.9%NACL 1000ML 1,000 ML IV SCH (05:05)
--- NOTE | 2025-05-23 06:38 | EKG ---
[facility] Test Date: 2025-05-22 Test Time: 20:55:38 Pat Name: FELY OTERO Department: [facility]IP Room: 232 Gender: M Certified Health Education Specialist: [id number] : 1980 Requested By: KATHERINE RANDALL Order Number: [id number] Reading MD: Avtar Garrido Measurements Intervals [place] Rate: 73 P: 42 MT: 155 QRS: 16 QRSD: 87 T: 64 QT: 399 QTc: 442 Interpretive Statements Sinus rhythm Compared to ECG 02/19/2025 12:56:40 No significant changes Electronically Signed On 05-23-2025 18:24:14 CDT by Avtar Garrido Please click the below link to view image of tracing.
[2025-05-23] MEDS: NICOTINE 21 MG/ 24 HR PATCH TD ONE (06:51)
[2025-05-23 07:39] LABS: IMMATURE GRANULOCYTE ABSOLUTE 0.03 K/uL (0-1); NUCLEATED RED BLOOD CELLS 0.0 % (0.0-0.19); PLATELET COUNT (AUTO) 196 K/uL (130-400); RED BLOOD CELL COUNT(AUTO) 5.03 MIL/uL (4.50-6.20); RED CELL DISTRIBUTION WIDTH 13.5 % (11.0-15.5); WHITE BLOOD COUNT (AUTO) 9.1 K/uL (4.8-10.8)
[2025-05-23 07:57] LABS: ASPARTATE AMINOTRANSFERASE 67.0 U/L (10-37); CREATINE KINASE, TOTAL 106.0 U/L (21-232); CREATININE 1.3 mg/dL (0.5-1.3); GLOMERULAR FILTR. RATE CALC 70.0 mL/min (>90); GLUCOSE,RANDOM 121.0 mg/dL (70-105); SODIUM SERUM 130.0 mmol/L (136-145); TOTAL PROTEIN, SERUM 6.8 g/dL (6.0-8.3); UREA NITROGEN, BLOOD 22.0 mg/dL (7-18)
[2025-05-23 08:00] VITALS: BP 119/72; PULSE 81; RESP 17; TEMP 97.6; O2SAT 97
[2025-05-23] MEDS ORDERED: PoTASSium chl 10% ELIXIR 20MEQ 20 MEQ/15 ML UDCUP PO PRN (09:30)
[2025-05-23] MEDS ORDERED: PoTASSium chloRIDE 20MEQ ER 20 MEQ ERTAB PO PRN (09:30)
[2025-05-23] MEDS ORDERED: MAGNESIUM 2GM PREMIX 50ML 50 ML IV PRN (09:30)
[2025-05-23 09:37] VITALS: BP 130/91; PULSE 76; RESP 14; TEMP 97.7
--- NOTE | 2025-05-23 09:46 | NUR ---
REPORT GIVEN TO ISHA HOLDEN. PATIENT TRANSFERRED TO SECOND FLOOR. ALL BELONGINGS ARE AT BEDSIDE.
--- NOTE | 2025-05-23 10:10 | HMCIMG ---
EXAM: US Abdomen complete CLINICAL HISTORY: Presents with abdominal cramps. Elevated liver enzymes. TECHNIQUE: Real-time ultrasound of the abdomen (complete) with image documentation. COMPARISON: Ultrasound of the abdomen dated 04/23/2019. FINDINGS: LIVER: Enlarged in size measuring 20 cm with increased echotexture. No mass or biliary dilatation. The liver contours are smooth. GALLBLADDER: The gallbladder is normal in appearance. No gallstone or wall thickening (measures 2 mm). COMMON BILE DUCT: No dilation. Measures 5 mm. PANCREAS: Unremarkable where visualized. The distal pancreas is obscured by overlying bowel gas. KIDNEYS: Right kidney measures 10.3 x 5.1 x 4.8 cm in craniocaudal, viviana-posterior and transverse dimensions. Left kidney measures 10.5 x 5.5 x 4.6 cm in craniocaudal, viviana-posterior and transverse dimension. Normal renal contours. No renal mass or calculus. No hydronephrosis. SPLEEN: Normal in size measuring 11.1 cm with normal echogenicity. No mass identified. AORTA: No aneurysm. IVC: Unremarkable as visualized. MISCELLANEOUS: No other significant findings identified. IMPRESSION: Hepatomegaly with features of hepatic steatosis. /[place]
[2025-05-23 10:17] VITALS: BP 134/72; PULSE 77; RESP 18; TEMP 97.9
--- NOTE | 2025-05-23 10:30 | HP ---
[facility] HISTORY AND PHYSICAL Date of Service: May 23, 2025 Time of Service: 09:42 HISTORY OF PRESENT ILLNESS: Mr. Otero, 45-year-old male with past medical history of hypertension, obstructive sleep apnea with non compliance to CPAP therapy came to ED on 05/22 with chief complaints of severe abdominal pain, abdominal cramping, chest pain, diarrhea(2-3 episodes per day for 2-3 days) and nausea for 1 day. Blood pressure on arrival was 69/42. His said that his blood pressure readings were high over past few weeks fluctuating around 160-180, his PCP recently added carvedilol 6.25 mg b.i.d., [id number] mg OD, clonidine 0.1mg tid prn for systolic BP greater than 180 mmHg. On admission lab shows Na 123, Cl 84, BUN 28, Cr 2.1, bilirubin 1.2, AST 69, ALT 70. CT scan of abdomen shows mildly dilated proximal jejunal loops to 3.2 cm in diameter, suggesting of mild duodenitis or early changes of jejunal obstruction. Patient was put on NPO and started IV fluids and Zofran for nausea. Normal small bowel follow-through was normal with transition of barium to the rectum in 30 minutes. Ordered cardiology and General surgery consultation, follow up with their recommendations. REVIEW OF SYSTEMS CONSTITUTIONAL: Denies fevers, chills, or night sweats. No unintentional weight loss reported. NEUROLOGICAL: Denies headache, amaurosis fugax, motor weakness, sensory deficit, vertigo/spinning sensation, gait abnormalities, or tremors. ENT: No hearing loss, otalgia, otorrhea, rhinitis, rhinorrhea, hoarseness, or sore throat. CARDIOVASCULAR: Chest pain , dyspnea on exertion, no orthopnea,no paroxysmal nocturnal dyspnea,no palpitations. PULMONARY: shortness of breath, cough, phlegm/sputum, pleuritic chest pain. SLEEP: difficulty falling asleep, staying asleep, snoring. GASTROINTESTINAL: Denies any type of dysphagia to either liquids or solids. nausea, abdominal pain, diarrhea. Denies coffee-ground emesis, hematemesis, hematochezia, or melanotic stools. GENITOURINARY: Denies frequency, urgency, nocturia, hematuria or incontinence (Storage/Irritative symptoms.) Low urinary stream, straining to void, urinary intermittency or hesitancy, splitting of the voiding stream, terminal dribbling. ENDOCRINOLOGIC: Denies polyuria, polydipsia, polyphagia or heat/cold intolerances. HEMATOLOGIC: Denies thrombophilia/previous clots, or coagulopathy/bleeding disorders. ONCOLOGIC: Denies personal history of malignancy. DERMATOLOGIC: Denies rashes or pruritus. PSYCHIATRIC: Denies any suicidal or homicidal ideation. Denies hallucinations. PAST MEDICAL HISTORY: - Hypertension - Obstructive sleep apnea requering CPAP at home PAST SURGICAL HISTORY: No PAST SOCIAL HISTORY: - Patient smokes 1.5 pack of cigarettes per day - patient drinks 2-4 drinks per day - denies illicit drug use. FAMILY HISTORY: - Patient mother has HTN, DM Type-2, pulmonary hypertension. - patient father had liver cirrhosis and DM Type-2. Coded Allergies: No Known Drug Allergies (Unverified Allergy, Unknown, 04/01/19) PHYSICAL EXAM GENERAL APPEARANCE: The patient is awake, alert, and oriented, appears to be in distress. NEUROLOGICAL: Cranial nerves II-XII grossly intact. Motor is 5/5 in bilateral upper and lower extremities proximal to distal. No sensory deficits. HEENT: Face is symmetric. Pupils are equal and reactive. Extraocular movements are intact. NECK: Supple. No JVD. No thyromegaly. No submental, submandibular, pre- /postauricular, occipital or supraclavicular lymphadenopathy. CHEST: Normal chest expansion. No Telemetry. LUNGS: Absence of any rales, rhonchi or any wheezing. CARDIOVASCULAR: Regular. S1 and S2 normal. No appreciable rubs, murmurs or gallops. ABDOMEN: Soft, tender, and nondistended. There is no rebound, voluntary guarding, or rigidity. : Deferred. No Rooney. EXTREMITIES: Non-edematous and not cyanotic. No clubbing. Good capillary refill. SKIN: No skin breakdown. Vital Sign (Last 24 Hours) 05/23/25 08:00 Temp 97.5 Pulse 81 Resp 17 B/P (MAP) 119/72 Pulse Ox 97 O2 Delivery Room Air O2 Flow Rate 0 FiO2 21 Intake & Output (last 24hrs) 05/22/25 05/22/25 05/23/25 14:59 22:59 06:59 Output Total 950 ml Balance -950 ml LABS: Laboratory: Test 05/23/25 07:02 05/23/25 01:11 05/22/25 22:51 05/22/25 21:05 Range/Units White Blood Count 9.1 # 4.8-10.8 K/uL Red Blood Count 5.03 4.50-6.20 MIL/uL Hemoglobin 17.2 14.0-18.0 g/dL Hematocrit 48.7 42-54 % Mean Corpuscular Volume 96.8 79-99 fL Mean Corpuscular Hemoglobin 34.2 H 27.0-33.0 pg Mean Corpuscular Hemoglobin Concent 35.3 32.0-36.0 g/dL Red Cell Distribution Width 13.5 11.0-15.5 % Platelet Count 196 130-400 K/uL Mean Platelet Volume 9.9 7.5-10.5 fL Immature Granulocyte % (Auto) 0.3 0-1 % Neutrophils (%) (Auto) 69.3 40.0-77.0 % Lymphocytes (%) (Auto) 17.2 L 21.0-51.0 % Monocytes (%) (Auto) 9.2 3.0-13.0 % Eosinophils (%) (Auto) 3.4 0.0-8.0 % Basophils (%) (Auto) 0.6 0.0-5.0 % Neutrophils # (Auto) 6.3 1.8-7.7 K/uL Lymphocytes # (Auto) 1.6 1.0-4.8 K/uL Monocytes # (Auto) 0.8 0.1-1.0 K/uL Eosinophils # (Auto) 0.31 0.00-0.70 K/uL Basophils # (Auto) 0.05 0.00-0.20 K/uL Absolute Immature Granulocyte (auto 0.03 0-1 K/uL Nucleated Red Blood Cells 0.0 0.0-0.19 % Sodium Level 130 L 136-145 mmol/L Potassium Level 3.7 3.5-5.1 mmol/L Chloride Level 93 L 101-111 mmol/L Carbon Dioxide Level 28 21-32 mmol/L Blood Urea Nitrogen 22 H 7-18 mg/dL Creatinine 1.3 0.5-1.3 mg/dL Glomerular Filtration Rate Calc 70 >90 mL/min Random Glucose 121 H 70-105 mg/dL Hemoglobin A1c 5.8 4.0-6.0 % Estimated Average Glucose (eAG) 120 70-126 mg/dL Total Calcium 8.3 L 8.5-10.1 mg/dL Magnesium Level 2.10 1.80-2.40 mg/dL Total Bilirubin 1.0 0.2-1.0 mg/dL Aspartate Amino Transf (AST/SGOT) 67 H 10-37 U/L Alanine Aminotransferase (ALT/SGPT) 61 12-78 U/L Alkaline Phosphatase 84 # 50-136 U/L Total Creatine Kinase 106 21-232 U/L Total Protein 6.8 6.0-8.3 g/dL Albumin 3.3 L 3.5-5.0 g/dL Direct Bilirubin 0.5 H 0.0-0.3 mg/dL Urine Color LIGHT-YELLOW YELLOW Urine Appearance CLEAR CLEAR Urine pH 5.5 5.0-8.0 Urine Specific [place] 1.004 1.001-1.031 Urine Protein NEGATIVE NEGATIVE mg/dL Urine Glucose (UA) NEGATIVE NEGATIVE mg/dL Urine Ketones NEGATIVE NEGATIVE mg/dL Urine Occult Blood NEGATIVE NEGATIVE Urine Nitrate NEGATIVE NEGATIVE Urine Bilirubin NEGATIVE NEGATIVE mg/dL Urine Urobilinogen 0.2 0.2-1.0 mg/dL Urine Leukocyte Esterase NEGATIVE NEGATIVE Luz/uL Lactic Acid Level 1.8 0.8-2.5 mmol/L Troponin I High Sensitivity 7 4-75 ng/L Procalcitonin 0.49 0.05-0.5 ng/mL Current Medications Medications (Trade) Dose Ordered Sig/Jasmeet Route PRN Reason Start Time Stop Time Status Last Admin Dose Admin Acetaminophen (TYLenol 325MG TAB) 650 mg Q4H PRN PO MILD PAIN (1-3) 05/23/25 09:30 06/22/25 09:29 Hydromorphone HCl (DiLAUDid 0.5MG INJ) 0.2 mg Q4H PRN IVP SEVERE PAIN (7-10) 05/23/25 09:30 05/28/25 09:29 Lactated Ringer's (Lactated Ringers 1000ml) 1,000 ml BOLUS STAT IV 05/22/25 20:58 05/22/25 21:01 DC 05/22/25 21:19 1,000 ML Magnesium Sulfate 50 ml @ 0 mls/hr PROTOCOL PRN IV mgprotocol 05/23/25 09:30 06/22/25 09:29 Morphine Sulfate (morPHINE 2MG SYG) 1 mg Q4H PRN IVP MODERATE PAIN (4-6) 05/23/25 09:30 05/30/25 09:29 Ondansetron HCl (zoFRAN 4MG INJ) 4 mg Q6H PRN IV NAUSEA/VOMITING 05/23/25 04:00 06/22/25 03:59 Pantoprazole Sodium (PROTonix 40MG INJ) 40 mg BID IVP 05/23/25 09:30 06/22/25 09:29 05/23/25 09:23 40 MG Potassium Chloride 100 ml @ 50 mls/hr AD PRN IV POTASSIUM PROTOCOL 05/23/25 09:30 06/22/25 09:29 Potassium Chloride 100 ml @ 100 mls/hr AD PRN IV POTASSIUM PROTOCOL 05/23/25 09:30 06/22/25 09:29 Potassium Chloride (K-Dur/Klor-Con 20meq) 20 meq AD PRN PO POTASSIUM PROTOCOL 05/23/25 09:30 06/22/25 09:29 Potassium Chloride (KCl 10% Elixir 20meq/15ml) 20 meq AD PRN PO POTASSIUM PROTOCOL 05/23/25 09:30 06/22/25 09:29 Sodium Chloride 1,000 ml @ 150 mls/hr Q6H40M IV 05/23/25 04:00 06/22/25 03:59 05/23/25 05:05 150 MLS/HR DIAGNOSTICS / RADIOLOGY: [place] [address] IMAGING REPORT Signed PATIENT: FELY OTERO MR#: [id number] : 1980 SEX: M AGE: 45 LOCATION: ED ORDER 17 STATUS: REG REPORT#: [id number] SERVICE 14 REASON: abd pain r/o free air ORDERING PHYSICIAN: HAIR RANDALL MD PROCEDURE: CXR1VW - CHEST 1VW EXAM: CR Chest, 1 view CLINICAL HISTORY: Abdominal pain. COMPARISON: Radiograph of the chest dated 02/19/2025. FINDINGS: The lungs show no infiltrates or other acute findings. No pleural effusion or pneumothorax. The cardiomediastinal silhouette is within normal limits. No acute osseous abnormality. No free air under the diaphragm. IMPRESSION: No acute cardiopulmonary process is evident. No free air under the diaphragm. Compared to the prior study, there is no significant interval change. /[place] DICTATED BY: CRISTAL RICKS Jr., MD DATE: 05/22/252338 ELECTRONICALLY SIGNED BY: CRISTAL RICKS Jr., MD DATE: 05/22/252338 [place] [address] [id number] IMAGING REPORT Addendum PATIENT: FELY OTERO MR#: [id number] : 1980 SEX: M AGE: 45 LOCATION: EDH ORDER 13 STATUS: REG REPORT#: [id number] SERVICE 12 REASON: abd pain lfts/lipase high ORDERING PHYSICIAN: HAIR RANDALL MD PROCEDURE: ABDO WO - CT ABDOMEN W/O CONTRAST ADDENDUM REPORT ADDENDUM: Results were shared by telephone at 2:31 am on 05-23-25 and acknowledged by Hair Martinez /[place] EXAM: CT Abdomen without IV contrast. CLINICAL HISTORY: Abdominal pain. Elevated LFTs and lipase. TECHNIQUE: Thin collimated axial CT images of the abdomen and pelvis were obtained with sagittal and coronal reformatted images also submitted. CT scan is done according to ALARA (As Low As Reasonably Achievable). CONTRAST: None. COMPARISON: None. FINDINGS: Unremarkable visualized lung parenchyma. No focal abnormality within the gallbladder, pancreas, spleen, adrenals, or kidneys. Mild fatty liver. Mildly dilated proximal jejunal loops measure up to 3.2 cm in diameter. No acute appendicitis. No lymphadenopathy. No free fluid. Mild calcific atherosclerotic disease in the abdominal aorta. There is no acute osseous abnormality. Mild thoracolumbar spondylosis. IMPRESSIONS: Mildly dilated proximal jejunal loops measure up to 3.2 cm in diameter. The differential could be mild jejunitis or early changes of jejunal obstruction. Recommend a barium follow-through study for further evaluation. No acute pancreatitis. Mild fatty liver. /[place] DICTATED BY: CRISTAL RICKS Jr., MD DATE: 05/23/25236 ELECTRONICALLY SIGNED BY: DATE: EXAM: CT Abdomen without IV contrast. CLINICAL HISTORY: Abdominal pain. Elevated LFTs and lipase. TECHNIQUE: Thin collimated axial CT images of the abdomen and pelvis were obtained with sagittal and coronal reformatted images also submitted. CT scan is done according to ALARA (As Low As Reasonably Achievable). CONTRAST: None. COMPARISON: None. FINDINGS: Unremarkable visualized lung parenchyma. No focal abnormality within the gallbladder, pancreas, spleen, adrenals, or kidneys. Mild fatty liver. Mildly dilated proximal jejunal loops measure up to 3.2 cm in diameter. No acute appendicitis. No lymphadenopathy. No free fluid. Mild calcific atherosclerotic disease in the abdominal aorta. There is no acute osseous abnormality. Mild thoracolumbar spondylosis. IMPRESSIONS: Mildly dilated proximal jejunal loops measure up to 3.2 cm in diameter. The differential could be mild jejunitis or early changes of jejunal obstruction. Recommend a barium follow-through study for further evaluation. No acute pancreatitis. Mild fatty liver. /[place] DICTATED BY: CRISTAL RICKS Jr., MD DATE: 05/23/25222 ELECTRONICALLY SIGNED BY: CRISTAL RICKS Jr., MD DATE: 05/23/25222 [place] [address] [id number] IMAGING REPORT Addendum PATIENT: FELY OTERO MR#: [id number] : 1980 SEX: M AGE: 45 LOCATION: [facility] ORDER 0006 STATUS: REG REPORT#: [id number] SERVICE 0005 REASON: abd pain ORDERING PHYSICIAN: HAIR RANDALL MD PROCEDURE: ABD PEL WO - CT ABDOMEN/PELVIS W/O CONTRAST ADDENDUM REPORT ADDENDUM: Results were shared by telephone at 3:29 am on 05-23-25 and acknowledged by HAIR Martinez /[place] EXAM: CT Abdomen and Pelvis without IV contrast. CLINICAL HISTORY: Pain in the abdomen. TECHNIQUE: Thin collimated axial CT images of the abdomen and pelvis were obtained, with sagittal and coronal reformatted images also submitted. A CT scan is done according to ALARA (As Low As Reasonably Achievable). CONTRAST: None. COMPARISON: CT scan of the abdomen and pelvis. 05/22/2025 FINDINGS: Unremarkable visualized lung parenchyma. There is no focal abnormality appreciated within the liver, gallbladder, pancreas, spleen, adrenals, or kidneys. Mild fatty liver. Redemonstrated is mild thickening and prominence of the proximal jejunal loops measuring up to 3 cm. The appendix is unremarkable. There is no abnormality within the urinary bladder. Unremarkable reproductive organs. No lymphadenopathy. No free fluid. No pneumoperitoneum. Mild calcific atherosclerotic disease in the abdominal vessels. There is no acute osseous abnormality. Mild thoracolumbar spondylosis. IMPRESSIONS: Redemonstrated is mild thickening and prominence of the proximal jejunal loops measuring up to 3 cm, concerning for jejunitis of early obstruction. Recommended barium follow-through examination for further evaluation. Mild fatty liver. /[place] DICTATED BY: CRISTAL RICKS Jr., MD DATE: 05/23/25 0331 ELECTRONICALLY SIGNED BY: DATE: EXAM: CT Abdomen and Pelvis without IV contrast. CLINICAL HISTORY: Pain in the abdomen. TECHNIQUE: Thin collimated axial CT images of the abdomen and pelvis were obtained, with sagittal and coronal reformatted images also submitted. A CT scan is done according to ALARA (As Low As Reasonably Achievable). CONTRAST: None. COMPARISON: CT scan of the abdomen and pelvis. 05/22/2025 FINDINGS: Unremarkable visualized lung parenchyma. There is no focal abnormality appreciated within the liver, gallbladder, pancreas, spleen, adrenals, or kidneys. Mild fatty liver. Redemonstrated is mild thickening and prominence of the proximal jejunal loops measuring up to 3 cm. The appendix is unremarkable. There is no abnormality within the urinary bladder. Unremarkable reproductive organs. No lymphadenopathy. No free fluid. No pneumoperitoneum. Mild calcific atherosclerotic disease in the abdominal vessels. There is no acute osseous abnormality. Mild thoracolumbar spondylosis. IMPRESSIONS: Redemonstrated is mild thickening and prominence of the proximal jejunal loops measuring up to 3 cm, concerning for jejunitis of early obstruction. Recommended barium follow-through examination for further evaluation. Mild fatty liver. /[place] DICTATED BY: CRISTAL RICKS Jr., MD DATE: 05/23/25323 ELECTRONICALLY SIGNED BY: CRISTAL RICKS Jr., MD DATE: 05/23/25323 [place] [address] IMAGING REPORT Signed PATIENT: FELY OTERO MR#: [id number] : 1980 SEX: M AGE: 45 LOCATION: 2A ORDER 4 STATUS: ADM IN REPORT#: [id number] SERVICE 0347 REASON: abdominal crampls elevated liver enzymnes ORDERING PHYSICIAN: DREW JAMA CARTOGRAPHY/MAPPING TECHNICIAN PROCEDURE: ABDOMEN - US ABDOMINAL COMPLETE EXAM: US Abdomen complete CLINICAL HISTORY: Presents with abdominal cramps. Elevated liver enzymes. TECHNIQUE: Real-time ultrasound of the abdomen (complete) with image documentation. COMPARISON: Ultrasound of the abdomen dated 04/23/2019. FINDINGS: LIVER: Enlarged in size measuring 20 cm with increased echotexture. No mass or biliary dilatation. The liver contours are smooth. GALLBLADDER: The gallbladder is normal in appearance. No gallstone or wall thickening (measures 2 mm). COMMON BILE DUCT: No dilation. Measures 5 mm. PANCREAS: Unremarkable where visualized. The distal pancreas is obscured by overlying bowel gas. KIDNEYS: Right kidney measures 10.3 x 5.1 x 4.8 cm in craniocaudal, viviana-posterior and transverse dimensions. Left kidney measures 10.5 x 5.5 x 4.6 cm in craniocaudal, viviana-posterior and transverse dimension. Normal renal contours. No renal mass or calculus. No hydronephrosis. SPLEEN: Normal in size measuring 11.1 cm with normal echogenicity. No mass identified. AORTA: No aneurysm. IVC: Unremarkable as visualized. MISCELLANEOUS: No other significant findings identified. IMPRESSION: Hepatomegaly with features of hepatic steatosis. /[place] DICTATED BY: CRISTAL RICKS Jr., MD DATE: 05/23/25 111 ELECTRONICALLY SIGNED BY: CRISTAL RICKS Jr., MD DATE: 05/23/25 [address] [place] [id number] IMAGING REPORT Signed PATIENT: FELY OTERO MR#: [id number] : 1980 SEX: M AGE: 45 LOCATION: 2AH ORDER 3 STATUS: ADM IN REPORT#: [id number] SERVICE 09 REASON: rule out small bowel obstruction ORDERING PHYSICIAN: NA MI MD PROCEDURE: SBFT - BOWEL SERIES SMALL BOWEL SERIES HISTORY: Rule out small bowel obstruction COMPARISON: None. TECHNIQUE: A small bowel series was performed with serial radiographs of the abdomen and pelvis obtained after oral administration of contrast. 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 No unusual calcifications detected. No dilated loops of bowel identified. . After oral administration of contrast including thin barium and Gastrografin, normal opacification of the stomach noted without evidence for malrotation. The duodenum, jejunum, and ileum appear normal in caliber. The mucosal pattern appears grossly normal, without evidence for obstruction or discrete filling defect. Transit time through the small bowel was approximately 30 minutes (normal is 1-4 hrs). The terminal ileum was spotted, and no strictures or masses detected. IMPRESSION: Normal small bowel follow-through with transition of barium to the rectum in 30 minutes. DICTATED BY: ANH RIZVI MD DATE: 05/23/25 1249 ELECTRONICALLY SIGNED BY: ANH RIZVI MD DATE: 05/23/25 1253 ASSESSMENT: Iatrogenic hypotension Iatrogenic hyponatremia MARIANNE Dehydration Jejunitis Obstructive sleep apnea with non compliance with CPAP therapy PLAN: Iatrogenic hypotension and iatrogenic hyponatremia: -fluids with sodium chloride 1000 mL q.6h IV -stopped all medications for hypertension -blood pressure regularly, trend sodium, potassium replace per protocol MARIANNE and dehydration: - continue management with fluids - BUN has been improved from 28 to22, creatinine from 2.1 to 1.3 - trend BUN and creatinine Jejunitis: -CT scan of abdomen showed inflammation of the jejunum, probable early small- bowel obstruction. -bowel obstruction has been ruled out after performing small-bowel series,normal small bowel follow-through. - full liquid diet started after ruling out small bowel obstruction and pancreatitis. -general surgery was consulted, follow general surgery recommendations. GI prophylaxis with Protonix 40 mg IV b.i.d. Trend electrolytes and replace per protocol Cardiology was consulted, follow cardiology recommendations. ATTESTATION BY PHYSICIAN I have seen and examined the patient. I reviewed the documentation, medical decision making, and treatment plan as noted by the resident provider above. I agree with the findings and plan of care. Jose Johnson MD, ADIL SHAH QUADRI MD May 23, 2025 10:30
[2025-05-23 10:53] VITALS: O2SAT 97
[2025-05-23] MEDS ORDERED: AIRSUPRA (10:56)
[2025-05-23] MEDS ORDERED: DIATR MEGLU/DIATRIZOATE SODIUM 30 ML BOTTLE ONE ×2 (10:56→11:00)
[2025-05-23 12:33] LABS: CREATININE,URINE RANDOM 36.64 mg/dL (30-135)
--- NOTE | 2025-05-23 12:53 | HMCIMG ---
SMALL BOWEL SERIES HISTORY: Rule out small bowel obstruction COMPARISON: None. TECHNIQUE: A small bowel series was performed with serial radiographs of the abdomen and pelvis obtained after oral administration of contrast. FINDINGS: RELAY TESTER: No evidence for free air. No unusual calcifications detected. No dilated loops of bowel identified. . After oral administration of contrast including thin barium and Gastrografin, normal opacification of the stomach noted without evidence for malrotation. The duodenum, jejunum, and ileum appear normal in caliber. The mucosal pattern appears grossly normal, without evidence for obstruction or discrete filling defect. Transit time through the small bowel was approximately 30 minutes (normal is 1-4 hrs). The terminal ileum was spotted, and no strictures or masses detected. IMPRESSION: Normal small bowel follow-through with transition of barium to the rectum in 30 minutes.
--- NOTE | 2025-05-23 13:38 | CONS ---
[facility] CARDIOLOGY CONSULTATION REPORT Cardiology consultation note dictated for Avtar Garrido MD Date Patient Seen: May 23, 2025 Requesting Physician: Rabia Pastor MD Reason for Consultation: Hypotension History of Present Illness: This is a 45-year-old male with a past medical history of hypertension and obstructive sleep apnea with noncompliance with CPAP therapy who presented to the ED with complaints of general body weakness, fatigue, abdominal pain, abdominal cramping, nausea, diarrhea (2-3 episodes for approximately 2-3 days), diaphoresis, chest discomfort, and cool extremities of 1 day in duration. Blood pressure on admission was 69/42 mmHg. Cardiology has been consulted for hypotension. The patient's was able to assist with interview. She endorsed the patient was taking amlodipine 5 mg daily and losartan 100 mg daily but still had a systolic blood pressure in the 160s to 190s with diastolics in the 100s. On May 15, 2025, the patient was additionally prescribed carvedilol 6.25 b.i.d., hydrochlorothiazide 25 mg daily, and clonidine 0.1 mg t.i.d. p.r.n. for systolic BP greater than 150 mmHg. On admission, BUN 28, creatinine of 2.1, and Sodium of 123. Home medications have since been held and SBP have improved to the 130s. Past Medical History: As per HPI and summarized below Past Surgical History: None Family History: The patient's mother had hypertension, diabetes mellitus type 2, and pulmonary hypertension. The patient's father had liver cirrhosis and diabetes mellitus type 2. Social History: The patient lives with his . Habits: The patient has smoked 1-1/2 packs of cigarettes per day. The patient drinks approximately 1-1/2 oz of liquor in 2-4 drinks per day. He denies illicit drug use. Home Meds: Air supra Amlodipine 2.5 mg daily Carvedilol 6.25 mg b.i.d. Hydrochlorothiazide 25 mg daily Losartan 100 mg daily Clonidine 0.1 mg t.i.d. p.r.n. for systolic BP greater than 150 Trazodone 50 mg q.h.s. Fluticasone/salmeterol 100-50 mcg, 1 inhalation b.i.d. Current Meds: Medications Dose Ordered Sig/Jasmeet Start Time Stop Time Status Last Admin Ondansetron HCl 4 mg Q6H PRN 05/23/25 04:00 06/22/25 03:59 Sodium Chloride 1,000 ml @ 150 mls/hr Q6H40M 05/23/25 04:00 06/22/25 03:59 05/23/25 05:05 Potassium Chloride 100 ml @ 100 mls/hr AD PRN 05/23/25 09:30 06/22/25 09:29 Potassium Chloride 20 meq AD PRN 05/23/25 09:30 06/22/25 09:29 Potassium Chloride 20 meq AD PRN 05/23/25 09:30 06/22/25 09:29 Potassium Chloride 100 ml @ 50 mls/hr AD PRN 05/23/25 09:30 06/22/25 09:29 Magnesium Sulfate 50 ml @ 0 mls/hr PROTOCOL PRN 05/23/25 09:30 06/22/25 09:29 Pantoprazole Sodium 40 mg BID 05/23/25 09:30 06/22/25 09:29 05/23/25 09:23 Acetaminophen 650 mg Q4H PRN 05/23/25 09:30 06/22/25 09:29 Morphine Sulfate 1 mg Q4H PRN 05/23/25 09:30 05/30/25 09:29 Hydromorphone HCl 0.2 mg Q4H PRN 05/23/25 09:30 05/28/25 09:29 Trazodone HCl 50 mg HS 05/23/25 21:00 06/22/25 20:59 Review of Systems: CONST: No fever, fatigue, or weight changes. EYES: No recent vision problems. ENT: No congestion, ear pain, or sore throat. C/V: No chest pain, palpitations, or edema. RESP: No cough, congestion, wheezing or shortness of breath. GI: No abdominal pain, nausea, vomiting, constipation, or diarrhea. : No incontinence or dysuria. SKIN: No rash. NEURO: No headache, focal numbness or weakness, dizziness, or seizures. PSYCH: No depression or anxiety. HEME: No abnormal bruising or bleeding. LYMPH: No swollen glands. Physical Examination: GENERAL: No acute distress. HEAD: Normal with no signs of head trauma. EYES: PERRLA, EOMI, conjunctiva and sclera normal. ENT: Hearing grossly intact, normal oropharynx. NECK: Supple without JVD. There is no tenderness, lymphadenopathy, or masses. No thyromegaly. Normal carotid upstrokes without bruits. LUNGS: Clear breath sounds bilaterally. No wheezes, or rhonchi. HEART: Normal rate and rhythm. Normal S1 and S2 without murmurs, gallop or rub. VASC: Peripheral pulses +2 bilaterally. ABD: Bowel sounds normal, soft, nontender, no masses, no organomegaly. No audible bruits. : Not examined LYMPH: No lymphadenopathy noted. EXT: No clubbing, cyanosis or edema. SKIN: No rashes or lesions noted. NEURO: Awake, alert, and oriented x3. No focal sensory or strength deficits noted. Vital Signs (last 8hr) Date Time Temp Pulse Resp B/P (MAP) Pulse Ox O2 Delivery O2 Flow Rate FiO2 05/23/25 10:53 97 Room Air* 0 21 05/23/25 10:17 97.9 77 18 134/72 98 Room Air 05/23/25 10:04 97.7 76 14 138/91 96 Room Air* 0 21 05/23/25 09:37 97.7 76 14 130/91 96 Room Air 05/23/25 08:00 97.5 81 17 119/72 97 Room Air 05/23/25 08:00 97 Room Air* 0 21 Laboratory: Hematology Labs: Test 05/23/25 07:02 Range/Units White Blood Count 9.1 # 4.8-10.8 K/uL Red Blood Count 5.03 4.50-6.20 MIL/uL Hemoglobin 17.2 14.0-18.0 g/dL Hematocrit 48.7 42-54 % Mean Corpuscular Volume 96.8 79-99 fL Mean Corpuscular Hemoglobin 34.2 H 27.0-33.0 pg Mean Corpuscular Hemoglobin Concent 35.3 32.0-36.0 g/dL Red Cell Distribution Width 13.5 11.0-15.5 % Platelet Count 196 130-400 K/uL Mean Platelet Volume 9.9 7.5-10.5 fL Immature Granulocyte % (Auto) 0.3 0-1 % Neutrophils (%) (Auto) 69.3 40.0-77.0 % Lymphocytes (%) (Auto) 17.2 L 21.0-51.0 % Monocytes (%) (Auto) 9.2 3.0-13.0 % Eosinophils (%) (Auto) 3.4 0.0-8.0 % Basophils (%) (Auto) 0.6 0.0-5.0 % Neutrophils # (Auto) 6.3 1.8-7.7 K/uL Lymphocytes # (Auto) 1.6 1.0-4.8 K/uL Monocytes # (Auto) 0.8 0.1-1.0 K/uL Eosinophils # (Auto) 0.31 0.00-0.70 K/uL Basophils # (Auto) 0.05 0.00-0.20 K/uL Absolute Immature Granulocyte (auto 0.03 0-1 K/uL Nucleated Red Blood Cells 0.0 0.0-0.19 % Chemistry Labs: Test 05/23/25 09:45 05/23/25 07:02 05/23/25 01:11 05/22/25 21:05 Range/Units Lactic Acid Level 1.2 0.8-2.5 mmol/L Sodium Level 130 L 136-145 mmol/L Potassium Level 3.7 3.5-5.1 mmol/L Chloride Level 93 L 101-111 mmol/L Carbon Dioxide Level 28 21-32 mmol/L Blood Urea Nitrogen 22 H 7-18 mg/dL Creatinine 1.3 0.5-1.3 mg/dL Glomerular Filtration Rate Calc 70 >90 mL/min Random Glucose 121 H 70-105 mg/dL Hemoglobin A1c 5.8 4.0-6.0 % Estimated Average Glucose (eAG) 120 70-126 mg/dL Total Calcium 8.3 L 8.5-10.1 mg/dL Magnesium Level 2.10 1.80-2.40 mg/dL Total Bilirubin 1.0 0.2-1.0 mg/dL Aspartate Amino Transf (AST/SGOT) 67 H 10-37 U/L Alanine Aminotransferase (ALT/SGPT) 61 12-78 U/L Alkaline Phosphatase 84 # 50-136 U/L Total Creatine Kinase 106 21-232 U/L C-Reactive Protein, Quantitative 7.10 H 0.5-3.0 mg/L Total Protein 6.8 6.0-8.3 g/dL Albumin 3.3 L 3.5-5.0 g/dL Lipase 66 16-77 U/L Thyroid Stimulating Hormone (TSH) 1.72 0.36-3.74 uIU/mL Direct Bilirubin 0.5 H 0.0-0.3 mg/dL Troponin I High Sensitivity 7 4-75 ng/L Procalcitonin 0.49 0.05-0.5 ng/mL Diagnostics / Radiology: Impression and Plan: Iatrogenic hypotension Iatrogenic hyponatremia MARIANNE Dehydration Jejunitis History of hypertension Obstructive sleep apnea with noncompliance with CPAP therapy Iatrogenic hypotension Iatrogenic hyponatremia due to hydrochlorothiazide which also induced an MARIANNE BP on admission of 69/42 mmHg All home medications have been held and SBP has have improved to the 130s The patient likely has hyperaldosteronism causing his multidrug resistant blood pressure -At this time, we can not begin spironolactone until sodium and electrolyte levels have normalized -Pending 2D echocardiogram Jejunitis concerning for early obstruction via CT of the abdomen on 05/23/2025 -Pending a small bowel series KELSIE CONTI [facility] May 23, 2025 13:38
--- NOTE | 2025-05-23 14:36 | NUR ---
DCP:HOME Pt currently lives with No Re[facility] [phone]. Pt does not have home health or provider services. Pt does uses a CPAP at home. Pt is able to complete ADLs independently. PCP is Pauly Cam and uses [facility] for any RX needs. AT NH pt will want to go home and family can assist with transportation. Addendum: 05/23/25 at 1438 by ERICA JASMINE SS Amended: Links added.
--- NOTE | 2025-05-23 15:15 | CONS ---
CONSULT NOTE: Consulting physician: Dr. Pineda Consulting service: General surgery Reason for consultation: Early obstruction History of present illness: This is a 45-year-old male with a medical history listed below that has been consulted to surgery after presenting to the hospital with the abdominal pain that began yesterday with 2-3 episodes of diarrhea in the last few days. Patient initially hypotensive on admission. Patient admitted to telemetry. Initial imaging performed on an concerning for potential prominence and thickening of jejunal loops with concerns of early obstruction noted. Since admission small-bowel series performed and contrast has made it all the way to the rectum with no signs of obstruction noted. Patient with multiple bowel movements. Patient was events started on clear liquid diet and tolerating with the abdominal pain at time of exam Medical history: Hypertension Obstructive sleep apnea Surgical history: Review of systems: General: No Fever, No Chills, No Night Sweats, No Fatigue, No Malaise, No Appetite, No Other HEENT: No Head Aches, No Visual Changes, No Eye Pain, No Ear Pain, No Dysphasia, No Sinus Congestion, No Post Nasal Drip, No Sore Throat, No Other Pulmonary: No Dyspnea, No Cough, No Pleuritic Chest Pain, No Other Cardiovascular: No: Chest Pain, Palpitations, Orthopnea, Paroxysmal No Dyspnea, Edema, Lt Headedness, Other Gastrointestinal: No: Nausea, Vomiting, Diarrhea, Constipation, Melena, Hematochezia, Other Genitourinary: No Dysuria, No Frequency, No Incontinence, No Hematuria, No Retention, No Other Musculoskeletal: No: other, neck pain, shoulder pain, arm pain, back pain, hand pain, leg pain, foot pain Skin: No Urticaria, No Rash, No Other Neurological: No: Weakness, Numbness, Incoordination, Change in speech, Confusion, Seizures, Other Physical exam: General: Awake alert and oriented Heart: Regular rate and rhythm} Lungs: Clear to auscultation no distress Abdomen: [Soft, nontender, nondistended Assessment: This is a 45-year-old male with concerns of small bowel obstruction which appears to have resolved at this time Plan: At this point in time with no signs of obstruction patient will be allowed to advance diet as tolerated No surgical intervention at this time If patient is able to tolerate solid diet patient will be cleared from surgical standpoint for discharge once cleared medically Dr. Healy and surgical team to be updated with any further acute events He has been updated on patient's status and we will be evaluating patient within next 24 hours Thank you for allowing us to participate in patient's care Time spent reviewing chart, evaluating patient, and dictating plan of care greater than 45 minutes SHERRON BETANCUR Jr. May 23, 2025 15:15
[2025-05-23] MEDS: ENOXAPARIN SODIUM 40 MG/0.4 ML SYRINGE SQ SCH (16:30)
[2025-05-23 16:35] VITALS: BP 123/72; PULSE 76; RESP 18; TEMP 97.8
[2025-05-23 20:00] VITALS: BP 152/86; PULSE 80; RESP 18; TEMP 97.9; O2SAT 97
--- NOTE | 2025-05-23 20:37 | HMCSR ---
APPROVED REPORT EXAM: Two-dimensional and M-mode echocardiogram with Doppler and color Doppler. INDICATION ICD: hypotensive episodes , baseline cardiac function 2D Dimensions RVDd3.7 cmLVEF(%)74.8 (>50%)LVED Vol(simp.)135.0 mL IVSd0.7 (0.7-1.1cm)FS(%)44 %LVES Vol(simp.)64.0 mL LVDd4.7 (3.8-5.6cm)LA (2D)3.5 (1.6-4.0cm)LVEF(%, simp.)53 % PWd0.9 (0.7-1.1cm)Ao Root(2D)3.0 (2.0-3.7cm)LA ESV INDEX (BP)23.29 mL/m2 LVDs2.6 (2.5-4.0cm)LVOT diam1.8 (1.8-2.4cm) Deformation Strain Apical 4-18.7 % Apical 2-17.5 % Apical 3-19.9 % Global Strain-18.7 % Aortic Valve AoV Vmax1.7 m/Rossi Peak GR12.0 mmHgLVOT Vmax1.3 m/s AoV VTI0.3 mAo Mean GR6.7 mmHgLVOT VTI0.28 m AVIVA (VMAX)1.94 cm2AVA (VTI) 2.1 cm2 Mitral Valve MV E Vmax76.1 cm/sDECEL Ucjx634 ms MV A Vmax96.1 cm/sP 1/2 T62 ms E/A ratio0.8MVA (PHT)3.5 cm2 TDI E/E' Medial9.2E/E' Lateral9.1 Medial E' Peak V8.31 cm/sLateral E' Peak V8.34 cm/s Pulmonary Valve PV Vmax1.1 m/sPV VTI0.21 mPV Mean GR2.6 mmHg PV Peak GR4.8 mmHg Tricuspid Valve TR Vmax2.8 m/sRVSP29.3 mmHg TR Peak GR30.9 mmHg Left Ventricle The left ventricle is normal size. There is normal LV segmental wall motion. There is normal left jinny tricular wall thickness. LVEF is 55%. The left ventricular diastolic function is normal. Right Ventricle The right ventricle is normal size. The right ventricular systolic function is normal. Atria The left atrium size is normal. The right atrium size is normal. Aortic Valve The aortic valve is normal in structure. No aortic regurgitation is present. There is no aortic valvu lar stenosis. Mitral Valve The mitral valve is normal in structure. There is no mitral valve regurgitation noted. There is no mi tral valve stenosis. Tricuspid Valve The tricuspid valve is normal in structure. There is trace tricuspid valve regurgitation noted. Pulmonic Valve The pulmonary valve is normal in structure. There is no pulmonic valvular regurgitation. Great Vessels The aortic root is normal in size. The IVC is normal in size and collapses >50% with inspiration. Pericardium There is no pericardial effusion. Conclusion LVEF is 55%.
--- NOTE | 2025-05-23 23:10 | NUR ---
PER TELEMETRY, PT HAD 3.9 SECOND PAUSE/ARREST WITH NON-SUSTAINED HEART RATE 40'S. PT ASYMPTOMATIC, NOTED TO HAVE APNEA AND LOUD SNORING. STATES DIAGNOSED TO SLEEP APNEA AND IS SUPPOSED TO USE CPAP AT HOME. CALL PLACED TO [facility]OSPITAL[facility] AND MADE AWARE, ORDERS RECEIVED FOR CPAP.
[2025-05-24] VITALS (8 sets, daily range): BP systolic 114–148; BP diastolic 60–116; PULSE 58–91; RESP 18–21; TEMP 97.8–98.6; O2SAT 97–100
--- NOTE | 2025-05-24 01:30 | NUR ---
PT IN BED, CPAP IN PLACE, NO SIGNS OF DISCOMFORT, NO DISTRESS. CALL LIGHT WITHIN REACH, TELEMETRY MONITORING.
--- NOTE | 2025-05-24 04:00 | NUR ---
PT REFUSED TO CONTINUE USING CPAP, DENIES DISCOMFORT, NO SOB OR LABORED RESPIRATIONS. TELEMETRY MONITORING, CALL LIGHT WITHIN REACH
[2025-05-24 04:39] LABS: NUCLEATED RED BLOOD CELLS 0.0 % (0.0-0.19); PLATELET COUNT (AUTO) 161.0 K/uL (130-400); RED BLOOD CELL COUNT(AUTO) 4.82 MIL/uL (4.50-6.20); RED CELL DISTRIBUTION WIDTH 13.5 % (11.0-15.5); WHITE BLOOD COUNT (AUTO) 6.6 K/uL (4.8-10.8)
[2025-05-24 04:49] LABS: CREATININE 1.2 mg/dL (0.5-1.3); GLOMERULAR FILTR. RATE CALC 77.0 mL/min (>90); GLUCOSE,RANDOM 101.0 mg/dL (70-105); SODIUM SERUM 135.0 mmol/L (136-145); UREA NITROGEN, BLOOD 15.0 mg/dL (7-18)
--- NOTE | 2025-05-24 08:41 | NUR ---
PATIENT WAS ACCOMPANIED BY HIS , JOHNATHAN, TO GIFT SHOP TO GET A COFFEE. PATIENT REFUSING TELEMETRY. WILL SPEAK WITH PATIENT ONCE HE RETURNS.
--- NOTE | 2025-05-24 09:15 | NUR ---
BACK TO ROOM, DENIES ABDOMINAL PAIN. CONTINUES TO REFUSE TELEMETRY PACK. GIVEN SCHEDULED MEDS.
--- NOTE | 2025-05-24 09:35 | NUR ---
REFUSING TELEMETRY PACK. REFUSAL FORM SIGNED BY PATIENT.
--- NOTE | 2025-05-24 09:39 | NUR ---
REPORTED OFF TO JORGE A PASTOR.
[2025-05-24] MEDS ORDERED: LOSA100T59 PO (14:39)
--- NOTE | 2025-05-24 14:58 | DS ---
Discharge Summary Hospital Course Summary: Patient is 45-year-old male with past medical history of hypertension, obstructive sleep apnea with noncompliance to CPAP therapy came to ED on 05/22 with chief complaints of severe abdominal pain, abdominal cramping, chest pain, diarrhea(2-3 episodes per day for 2-3 days) and nausea for 1 day. Patient lo oked distressed, his was able to assist the interview. She said that patient was taking amlodipine5 mg daily, losartan 100 mg daily but still had a systolic blood pressure in the 160s to 190s with diastolics in the 100s. On May 15, 2025, the patient was additionally prescribed carvedilol 6.25 b.i.d., [id number] mg daily, and clonidine 0.1 mg t.i.d. p.r.n. for systolic BP>150 mmHg by his PCP. His blood pressure has been improved after addition of medications for a week, but his blood pressure began to go below 90 mmHg systolic. The patient is noncompliant with CPAP therapy for his obstructive sleep apnea, uses trazodone for sleeping. His blood pressure on arrival was 69/42, lab shows sodium 123, chloride 84, BUN 28, creatinine 2.1, bilirubin 1.2, AST 69, ALT 70. Patient was put on NPO started IV fluids, Zofran for nausea. CT scan of abdomen showed mildly dilated proximal jejunal loops to 3.2 cm in diameter, suggesting of mild jejunitis or early changes of jejunal obstruction. Small-bowel follow-through was performed to rule out obstruction, transitional barium to rectum within 30 minutes ruling out small-bowel obstruction. General Surgery consultation suggested starting full liquid diet, changing to solid diet as tolerated, no active interventions needed at that time. Cardiology consultation recommended to follow-up with 2D echo. 2D echo shows left ventricu lar ejection fraction of 55%, unremarkable chambers. Patient is hemodynamically stable to good discharged. Patient was advised to discontinue all his hypertension medication, we will start with losartan 100 mg OD p.o., if blood pressure is greater than 150 mmHg systolic consistently add amlodipine5 mg od. Follow-up with cloth bale header in outpatient clinic in 1-2 weeks. Advised to use CPAP therapy regularly at night, follow-up with PCP in 1-2 weeks. Public Policy Analyst(s): CONSULTATION REPORT Name: FELY OTERO Acct: [id number] MR: [id number] : 1980 Admit Date: 05/23/25 KELSIE CONTI [facility] [address] [place] [address] [facility] CARDIOLOGY CONSULTATION REPORT Cardiology consultation note dictated for Adiel Garrido MD Date Patient Seen: May 23, 2025 Requesting Physician: Rabai Mckeon MD Reason for Consultation: Hypotension History of Present Illness: This is a 45-year-old male with a past medical history of hypertension and obstructive sleep apnea with noncompliance with CPAP therapy who presented to the ED with complaints of general body weakness, fatigue, abdominal pain, abdominal cramping, nausea, diarrhea (2-3 episodes for approximately 2-3 days), diaphoresis, chest discomfort, and cool extremities of 1 day in duration. Blood pressure on admission was 69/42 mmHg. Cardiology has been consulted for hypotension. The patient's was able to assist with interview. She endorsed the patient was taking amlodipine 5 mg daily and losartan 100 mg daily but still had a systolic blood pressure in the 160s to 190s with diastolics in the 100s. On May 15, 2025, the patient was additionally prescribed carvedilol 6.25 b.i.d., hydrochlorothiazide 25 mg daily, and clonidine 0.1 mg t.i.d. p.r.n. for systolic BP greater than 150 mmHg. On admission, BUN 28, creatinine of 2.1, and Sodium of 123. Home medications have since been held and SBP have improved to the 130s. Past Medical History: As per HPI and summarized below Past Surgical History: None Family History: The patient's mother had hypertension, diabetes mellitus type 2, and pulmonary hypertension. The patient's father had liver cirrhosis and diabetes mellitus type 2. Social History: The patient lives with his . Habits: The patient has smoked 1-1/2 packs of cigarettes per day. The patient drinks approximately 1-1/2 oz of liquor in 2-4 drinks per day. He denies illicit drug use. Home Meds: Air supra Amlodipine 2.5 mg daily Carvedilol 6.25 mg b.i.d. Hydrochlorothiazide 25 mg daily Losartan 100 mg daily Clonidine 0.1 mg t.i.d. p.r.n. for systolic BP greater than 150 Trazodone 50 mg q.h.s. Fluticasone/salmeterol 100-50 mcg, 1 inhalation b.i.d. Current Meds: Medications Dose Ordered Sig/Jasmeet Start Time Stop Time Status Last Admin Ondansetron HCl 4 mg Q6H PRN 05/23/25 04:00 06/22/25 03:59 Sodium Chloride 1,000 ml @ 150 mls/hr Q6H40M 05/23/25 04:00 06/22/25 03:59 05/23/25 05:05 Potassium Chloride 100 ml @ 100 mls/hr AD PRN 05/23/25 09:30 06/22/25 09:29 Potassium Chloride 20 meq AD PRN 05/23/25 09:30 06/22/25 09:29 Potassium Chloride 20 meq AD PRN 05/23/25 09:30 06/22/25 09:29 Potassium Chloride 100 ml @ 50 mls/hr AD PRN 05/23/25 09:30 06/22/25 09:29 Magnesium Sulfate 50 ml @ 0 mls/hr PROTOCOL PRN 05/23/25 09:30 06/22/25 09:29 Pantoprazole Sodium 40 mg BID 05/23/25 09:30 06/22/25 09:29 05/23/25 09:23 Acetaminophen 650 mg Q4H PRN 05/23/25 09:30 06/22/25 09:29 Morphine Sulfate 1 mg Q4H PRN 05/23/25 09:30 05/30/25 09:29 Hydromorphone HCl 0.2 mg Q4H PRN 05/23/25 09:30 05/28/25 09:29 Trazodone HCl 50 mg HS 05/23/25 21:00 06/22/25 20:59 Review of Systems: CONST: No fever, fatigue, or weight changes. EYES: No recent vision problems. ENT: No congestion, ear pain, or sore throat. C/V: No chest pain, palpitations, or edema. RESP: No cough, congestion, wheezing or shortness of breath. GI: No abdominal pain, nausea, vomiting, constipation, or diarrhea. : No incontinence or dysuria. SKIN: No rash. NEURO: No headache, focal numbness or weakness, dizziness, or seizures. PSYCH: No depression or anxiety. HEME: No abnormal bruising or bleeding. LYMPH: No swollen glands. Physical Examination: GENERAL: No acute distress. HEAD: Normal with no signs of head trauma. EYES: PERRLA, EOMI, conjunctiva and sclera normal. ENT: Hearing grossly intact, normal oropharynx. NECK: Supple without JVD. There is no tenderness, lymphadenopathy, or masses. No thyromegaly. Normal carotid upstrokes without bruits. LUNGS: Clear breath sounds bilaterally. No wheezes, or rhonchi. HEART: Normal rate and rhythm. Normal S1 and S2 without murmurs, gallop or rub. VASC: Peripheral pulses +2 bilaterally. ABD: Bowel sounds normal, soft, nontender, no masses, no organomegaly. No audible bruits. : Not examined LYMPH: No lymphadenopathy noted. EXT: No clubbing, cyanosis or edema. SKIN: No rashes or lesions noted. NEURO: Awake, alert, and oriented x3. No focal sensory or strength deficits noted. Vital Signs (last 8hr) Date Time Temp Pulse Resp B/P (MAP) Pulse Ox O2 Delivery O2 Flow Rate FiO2 05/23/25 10:53 97 Room Air* 0 21 05/23/25 10:17 97.9 77 18 134/72 98 Room Air 05/23/25 10:04 97.7 76 14 138/91 96 Room Air* 0 21 05/23/25 09:37 97.7 76 14 130/91 96 Room Air 05/23/25 08:00 97.5 81 17 119/72 97 Room Air 05/23/25 08:00 97 Room Air* 0 21 Laboratory: Hematology Labs: Test 05/23/25 07:02 Range/Units White Blood Count 9.1 # 4.8-10.8 K/uL Red Blood Count 5.03 4.50-6.20 MIL/uL Hemoglobin 17.2 14.0-18.0 g/dL Hematocrit 48.7 42-54 % Mean Corpuscular Volume 96.8 79-99 fL Mean Corpuscular Hemoglobin 34.2 H 27.0-33.0 pg Mean Corpuscular Hemoglobin Concent 35.3 32.0-36.0 g/dL Red Cell Distribution Width 13.5 11.0-15.5 % Platelet Count 196 130-400 K/uL Mean Platelet Volume 9.9 7.5-10.5 fL Immature Granulocyte % (Auto) 0.3 0-1 % Neutrophils (%) (Auto) 69.3 40.0-77.0 % Lymphocytes (%) (Auto) 17.2 L 21.0-51.0 % Monocytes (%) (Auto) 9.2 3.0-13.0 % Eosinophils (%) (Auto) 3.4 0.0-8.0 % Basophils (%) (Auto) 0.6 0.0-5.0 % Neutrophils # (Auto) 6.3 1.8-7.7 K/uL Lymphocytes # (Auto) 1.6 1.0-4.8 K/uL Monocytes # (Auto) 0.8 0.1-1.0 K/uL Eosinophils # (Auto) 0.31 0.00-0.70 K/uL Basophils # (Auto) 0.05 0.00-0.20 K/uL Absolute Immature Granulocyte (auto 0.03 0-1 K/uL Nucleated Red Blood Cells 0.0 0.0-0.19 % Chemistry Labs: Test 05/23/25 09:45 05/23/25 07:02 05/23/25 01:11 05/22/25 21:05 Range/Units Lactic Acid Level 1.2 0.8-2.5 mmol/L Sodium Level 130 L 136-145 mmol/L Potassium Level 3.7 3.5-5.1 mmol/L Chloride Level 93 L 101-111 mmol/L Carbon Dioxide Level 28 21-32 mmol/L Blood Urea Nitrogen 22 H 7-18 mg/dL Creatinine 1.3 0.5-1.3 mg/dL Glomerular Filtration Rate Calc 70 >90 mL/min Random Glucose 121 H 70-105 mg/dL Hemoglobin A1c 5.8 4.0-6.0 % Estimated Average Glucose (eAG) 120 70-126 mg/dL Total Calcium 8.3 L 8.5-10.1 mg/dL Magnesium Level 2.10 1.80-2.40 mg/dL Total Bilirubin 1.0 0.2-1.0 mg/dL Aspartate Amino Transf (AST/SGOT) 67 H 10-37 U/L Alanine Aminotransferase (ALT/SGPT) 61 12-78 U/L Alkaline Phosphatase 84 # 50-136 U/L Total Creatine Kinase 106 21-232 U/L C-Reactive Protein, Quantitative 7.10 H 0.5-3.0 mg/L Total Protein 6.8 6.0-8.3 g/dL Albumin 3.3 L 3.5-5.0 g/dL Lipase 66 16-77 U/L Thyroid Stimulating Hormone (TSH) 1.72 0.36-3.74 uIU/mL Direct Bilirubin 0.5 H 0.0-0.3 mg/dL Troponin I High Sensitivity 7 4-75 ng/L Procalcitonin 0.49 0.05-0.5 ng/mL Diagnostics / Radiology: Impression and Plan: Iatrogenic hypotension Iatrogenic hyponatremia MARIANNE Dehydration Jejunitis History of hypertension Obstructive sleep apnea with noncompliance with CPAP therapy Iatrogenic hypotension Iatrogenic hyponatremia due to hydrochlorothiazide which also induced an MARIANNE BP on admission of 69/42 mmHg All home medications have been held and SBP has have improved to the 130s The patient likely has hyperaldosteronism causing his multidrug resistant blood pressure -At this time, we can not begin spironolactone until sodium and electrolyte levels have normalized -Pending 2D echocardiogram Jejunitis concerning for early obstruction via CT of the abdomen on 05/23/2025 -Pending a small bowel series KELSIE CONTI [facility] May 23, 2025 13:38 Electronically Signed by: KELSIE CONTI [facility]05/23/25 1338 Electronically Co-Signed by: CONSULTATION REPORT Name: FELY OTERO Acct: [id number] MR: [id number] : 1980 Admit Date: 05/23/25 SHERRON BETANCUR Jr., PA, PA [address] [address] CONSULT NOTE: Consulting physician: Dr. Pineda Consulting service: General surgery Reason for consultation: Early obstruction History of present illness: This is a 45-year-old male with a medical history listed below that has been consulted to surgery after presenting to the hospital with the abdominal pain that began yesterday with 2-3 episodes of diarrhea in the last few days. Patient initially hypotensive on admission. Patient admitted to telemetry. Initial imaging performed on an concerning for potential prominence and thickening of jejunal loops with concerns of early obstruction noted. Since admission small-bowel series performed and contrast has made it all the way to the rectum with no signs of obstruction noted. Patient with multiple bowel movements. Patient was events started on clear liquid diet and tolerating with the abdominal pain at time of exam Medical history: Hypertension Obstructive sleep apnea Surgical history: Review of systems: General: No Fever, No Chills, No Night Sweats, No Fatigue, No Malaise, No Appetite, No Other HEENT: No Head Aches, No Visual Changes, No Eye Pain, No Ear Pain, No Dysphasia, No Sinus Congestion, No Post Nasal Drip, No Sore Throat, No Other Pulmonary: No Dyspnea, No Cough, No Pleuritic Chest Pain, No Other Cardiovascular: No: Chest Pain, Palpitations, Orthopnea, Paroxysmal No Dyspnea, Edema, Lt Headedness, Other Gastrointestinal: No: Nausea, Vomiting, Diarrhea, Constipation, Melena, Hematochezia, Other Genitourinary: No Dysuria, No Frequency, No Incontinence, No Hematuria, No Retention, No Other Musculoskeletal: No: other, neck pain, shoulder pain, arm pain, back pain, hand pain, leg pain, foot pain Skin: No Urticaria, No Rash, No Other Neurological: No: Weakness, Numbness, Incoordination, Change in speech, Confusion, Seizures, Other Physical exam: General: Awake alert and oriented Heart: Regular rate and rhythm} Lungs: Clear to auscultation no distress Abdomen: [Soft, nontender, nondistended Assessment: This is a 45-year-old male with concerns of small bowel obstruction which appears to have resolved at this time Plan: At this point in time with no signs of obstruction patient will be allowed to advance diet as tolerated No surgical intervention at this time If patient is able to tolerate solid diet patient will be cleared from surgical standpoint for discharge once cleared medically Dr. Healy and surgical team to be updated with any further acute events He has been updated on patient's status and we will be evaluating patient within next 24 hours Thank you for allowing us to participate in patient's care Time spent reviewing chart, evaluating patient, and dictating plan of care greater than 45 minutes SHERRON BETANCUR Jr. May 23, 2025 15:15 Electronically Signed by: RENETTA BASSETT Jr., RENETTA05/23/25 1515 Electronically Co-Signed by: Procedure(s): [facility] [address] [place] [id number] IMAGING REPORT Signed PATIENT: FELY OTERO MR#: [id number] : 1980 SEX: M AGE: 45 LOCATION: EDH ORDER 17 STATUS: REG ER REPORT#: [id number] SERVICE 14 REASON: abd pain r/o free air ORDERING PHYSICIAN: HAIR RANDALL MD PROCEDURE: CXR1VW - CHEST 1VW EXAM: CR Chest, 1 view CLINICAL HISTORY: Abdominal pain. COMPARISON: Radiograph of the chest dated 02/19/2025. FINDINGS: The lungs show no infiltrates or other acute findings. No pleural effusion or pneumothorax. The cardiomediastinal silhouette is within normal limits. No acute osseous abnormality. No free air under the diaphragm. IMPRESSION: No acute cardiopulmonary process is evident. No free air under the diaphragm. Compared to the prior study, there is no significant interval change. /[place] DICTATED BY: CRISTAL RICKS Jr., MD DATE: 05/22/252338 ELECTRONICALLY SIGNED BY: CRISTAL RICKS Jr., MD DATE: 05/22/252338 [place] [address] [place] [id number] IMAGING REPORT Addendum PATIENT: FELY OTERO MR#: [id number] : 1980 SEX: M AGE: 45 LOCATION: EDH ORDER 13 STATUS: REG ER REPORT#: [id number] SERVICE 12 REASON: abd pain lfts/lipase high ORDERING PHYSICIAN: HAIR RANDALL MD PROCEDURE: ABDO WO - CT ABDOMEN W/O CONTRAST ADDENDUM REPORT ADDENDUM: Results were shared by telephone at 2:31 am on 05-23-25 and acknowledged by Hair Martinez /[place] EXAM: CT Abdomen without IV contrast. CLINICAL HISTORY: Abdominal pain. Elevated LFTs and lipase. TECHNIQUE: Thin collimated axial CT images of the abdomen and pelvis were obtained with sagittal and coronal reformatted images also submitted. CT scan is done according to ALARA (As Low As Reasonably Achievable). CONTRAST: None. COMPARISON: None. FINDINGS: Unremarkable visualized lung parenchyma. No focal abnormality within the gallbladder, pancreas, spleen, adrenals, or kidneys. Mild fatty liver. Mildly dilated proximal jejunal loops measure up to 3.2 cm in diameter. No acute appendicitis. No lymphadenopathy. No free fluid. Mild calcific atherosclerotic disease in the abdominal aorta. There is no acute osseous abnormality. Mild thoracolumbar spondylosis. IMPRESSIONS: Mildly dilated proximal jejunal loops measure up to 3.2 cm in diameter. The differential could be mild jejunitis or early changes of jejunal obstruction. Recommend a barium follow-through study for further evaluation. No acute pancreatitis. Mild fatty liver. /[place] DICTATED BY: CRISTAL RICKS Jr., MD DATE: 05/23/25 023 ELECTRONICALLY SIGNED BY: DATE: EXAM: CT Abdomen without IV contrast. CLINICAL HISTORY: Abdominal pain. Elevated LFTs and lipase. TECHNIQUE: Thin collimated axial CT images of the abdomen and pelvis were obtained with sagittal and coronal reformatted images also submitted. CT scan is done according to ALARA (As Low As Reasonably Achievable). CONTRAST: None. COMPARISON: None. FINDINGS: Unremarkable visualized lung parenchyma. No focal abnormality within the gallbladder, pancreas, spleen, adrenals, or kidneys. Mild fatty liver. Mildly dilated proximal jejunal loops measure up to 3.2 cm in diameter. No acute appendicitis. No lymphadenopathy. No free fluid. Mild calcific atherosclerotic disease in the abdominal aorta. There is no acute osseous abnormality. Mild thoracolumbar spondylosis. IMPRESSIONS: Mildly dilated proximal jejunal loops measure up to 3.2 cm in diameter. The differential could be mild jejunitis or early changes of jejunal obstruction. Recommend a barium follow-through study for further evaluation. No acute pancreatitis. Mild fatty liver. /[place] DICTATED BY: CRISTAL RICKS Jr., MD DATE: 05/23/25222 ELECTRONICALLY SIGNED BY: CRISTAL RICKS Jr., MD DATE: 05/23/25222 [place] [address] [place] [address] IMAGING REPORT Signed PATIENT: FELY OTERO MR#: [id number] : 1980 SEX: M AGE: 45 LOCATION: 2A ORDER 4 STATUS: ADM IN REPORT#: [id number] SERVICE 6 REASON: abdominal crampls elevated liver enzymnes ORDERING PHYSICIAN: DREW JAMA SUPERINTENDENT SYSTEM OPERATION PROCEDURE: ABDOMEN - US ABDOMINAL COMPLETE EXAM: US Abdomen complete CLINICAL HISTORY: Presents with abdominal cramps. Elevated liver enzymes. TECHNIQUE: Real-time ultrasound of the abdomen (complete) with image documentation. COMPARISON: Ultrasound of the abdomen dated 04/23/2019. FINDINGS: LIVER: Enlarged in size measuring 20 cm with increased echotexture. No mass or biliary dilatation. The liver contours are smooth. GALLBLADDER: The gallbladder is normal in appearance. No gallstone or wall thickening (measures 2 mm). COMMON BILE DUCT: No dilation. Measures 5 mm. PANCREAS: Unremarkable where visualized. The distal pancreas is obscured by overlying bowel gas. KIDNEYS: Right kidney measures 10.3 x 5.1 x 4.8 cm in craniocaudal, viviana-posterior and transverse dimensions. Left kidney measures 10.5 x 5.5 x 4.6 cm in craniocaudal, viviana-posterior and transverse dimension. Normal renal contours. No renal mass or calculus. No hydronephrosis. SPLEEN: Normal in size measuring 11.1 cm with normal echogenicity. No mass identified. AORTA: No aneurysm. IVC: Unremarkable as visualized. MISCELLANEOUS: No other significant findings identified. IMPRESSION: Hepatomegaly with features of hepatic steatosis. /[place] DICTATED BY: CRISTAL RICKS Jr., MD DATE: 05/23/250 ELECTRONICALLY SIGNED BY: CRISTAL RICKS Jr., MD DATE: 05/23/25 [address] [place] [address] [place] [address] IMAGING REPORT Addendum PATIENT: FELY OTERO MR#: [id number] : 1980 SEX: M AGE: 45 LOCATION: EDH ORDER 0006 STATUS: [facility] REPORT#: [id number] SERVICE 0005 REASON: abd pain ORDERING PHYSICIAN: HAIR RANDALL MD PROCEDURE: ABD PEL WO - CT ABDOMEN/PELVIS W/O CONTRAST ADDENDUM REPORT ADDENDUM: Results were shared by telephone at 3:29 am on 05-23-25 and acknowledged by HAIR Martinez /[place] EXAM: CT Abdomen and Pelvis without IV contrast. CLINICAL HISTORY: Pain in the abdomen. TECHNIQUE: Thin collimated axial CT images of the abdomen and pelvis were obtained, with sagittal and coronal reformatted images also submitted. A CT scan is done according to ALARA (As Low As Reasonably Achievable). CONTRAST: None. COMPARISON: CT scan of the abdomen and pelvis. 05/22/2025 FINDINGS: Unremarkable visualized lung parenchyma. There is no focal abnormality appreciated within the liver, gallbladder, pancreas, spleen, adrenals, or kidneys. Mild fatty liver. Redemonstrated is mild thickening and prominence of the proximal jejunal loops measuring up to 3 cm. The appendix is unremarkable. There is no abnormality within the urinary bladder. Unremarkable reproductive organs. No lymphadenopathy. No free fluid. No pneumoperitoneum. Mild calcific atherosclerotic disease in the abdominal vessels. There is no acute osseous abnormality. Mild thoracolumbar spondylosis. IMPRESSIONS: Redemonstrated is mild thickening and prominence of the proximal jejunal loops measuring up to 3 cm, concerning for jejunitis of early obstruction. Recommended barium follow-through examination for further evaluation. Mild fatty liver. /[place] DICTATED BY: CRISTAL RICKS Jr., MD DATE: 05/23/25330 ELECTRONICALLY SIGNED BY: DATE: EXAM: CT Abdomen and Pelvis without IV contrast. CLINICAL HISTORY: Pain in the abdomen. TECHNIQUE: Thin collimated axial CT images of the abdomen and pelvis were obtained, with sagittal and coronal reformatted images also submitted. A CT scan is done according to ALARA (As Low As Reasonably Achievable). CONTRAST: None. COMPARISON: CT scan of the abdomen and pelvis. 05/22/2025 FINDINGS: Unremarkable visualized lung parenchyma. There is no focal abnormality appreciated within the liver, gallbladder, pancreas, spleen, adrenals, or kidneys. Mild fatty liver. Redemonstrated is mild thickening and prominence of the proximal jejunal loops measuring up to 3 cm. The appendix is unremarkable. There is no abnormality within the urinary bladder. Unremarkable reproductive organs. No lymphadenopathy. No free fluid. No pneumoperitoneum. Mild calcific atherosclerotic disease in the abdominal vessels. There is no acute osseous abnormality. Mild thoracolumbar spondylosis. IMPRESSIONS: Redemonstrated is mild thickening and prominence of the proximal jejunal loops measuring up to 3 cm, concerning for jejunitis of early obstruction. Recommended barium follow-through examination for further evaluation. Mild fatty liver. /[place] DICTATED BY: CRISTAL RICKS Jr., MD DATE: 05/23/25323 ELECTRONICALLY SIGNED BY: CRISTAL RICKS Jr., MD DATE: 05/23/25323 [place] [address] [address] IMAGING REPORT Signed PATIENT: FELY OTERO MR#: [id number] : 1980 SEX: M AGE: 45 LOCATION: 2AH ORDER 3 STATUS: ADM IN REPORT#: [id number] SERVICE 09 REASON: rule out small bowel obstruction ORDERING PHYSICIAN: NA MI MD PROCEDURE: SBFT - BOWEL SERIES SMALL BOWEL SERIES HISTORY: Rule out small bowel obstruction COMPARISON: None. TECHNIQUE: A small bowel series was performed with serial radiographs of the abdomen and pelvis obtained after oral administration of contrast. FINDINGS: COPY CENTER SPECIALIST: No evidence for free air. No unusual calcifications detected. No dilated loops of bowel identified. . After oral administration of contrast including thin barium and Gastrografin, normal opacification of the stomach noted without evidence for malrotation. The duodenum, jejunum, and ileum appear normal in caliber. The mucosal pattern appears grossly normal, without evidence for obstruction or discrete filling defect. Transit time through the small bowel was approximately 30 minutes (normal is 1-4 hrs). The terminal ileum was spotted, and no strictures or masses detected. IMPRESSION: Normal small bowel follow-through with transition of barium to the rectum in 30 minutes. DICTATED BY: ANH RIZVI MD DATE: 05/23/25 1249 ELECTRONICALLY SIGNED BY: ANH RIZVI MD DATE: 05/23/[address] [address] IMAGING REPORT Signed PATIENT: FELY OTERO MR#: [id number] : 1980 SEX: M AGE: 45 LOCATION: 2AH ORDER 8 STATUS: ADM IN REPORT#: [id number] SERVICE 4 REASON: hypotensive episodes , baseline cardiac function ORDERING PHYSICIAN: CLAUDIA MCKEON MD PROCEDURE: ECHO CMP - ECHO 2-D COMPLETE APPROVED REPORT EXAM: Two-dimensional and M-mode echocardiogram with Doppler and color Doppler. INDICATION ICD: hypotensive episodes , baseline cardiac function 2D Dimensions RVDd 3.7 cm LVEF(%) 74.8 (>50%) LVED Vol(simp.) 135.0 mL IVSd 0.7 (0.7-1.1cm) FS(%) 44 % LVES Vol(simp.) 64.0 mL LVDd 4.7 (3.8-5.6cm) LA (2D) 3.5 (1.6-4.0cm) LVEF(%, simp.) 53 % PWd 0.9 (0.7-1.1cm) Ao Root(2D) 3.0 (2.0-3.7cm) LA ESV INDEX (BP) 23.29 mL/m2 LVDs 2.6 (2.5-4.0cm) LVOT diam 1.8 (1.8-2.4cm) Deformation Strain Apical 4 -18.7 % Apical 2 -17.5 % Apical 3 -19.9 % Global Strain -18.7 % Aortic Valve AoV Vmax 1.7 m/s Ao Peak GR 12.0 mmHg LVOT Vmax 1.3 m/s AoV VTI 0.3 m Ao Mean GR 6.7 mmHg LVOT VTI 0.28 m AVIVA (VMAX) 1.94 cm2 AVIVA (VTI) 2.1 cm2 Mitral Valve MV E Vmax 76.1 cm/s DECEL Time 272 ms MV A Vmax 96.1 cm/s P 1/2 T 62 ms E/A ratio 0.8 MVA (PHT) 3.5 cm2 TDI E/E' Medial 9.2 E/E' Lateral 9.1 Medial E' Peak V 8.31 cm/s Lateral E' Peak V 8.34 cm/s Pulmonary Valve PV Vmax 1.1 m/s PV VTI 0.21 m PV Mean GR 2.6 mmHg PV Peak GR 4.8 mmHg Tricuspid Valve TR Vmax 2.8 m/s RVSP 29.3 mmHg TR Peak GR 30.9 mmHg Left Ventricle The left ventricle is normal size. There is normal LV segmental wall motion. There is normal left ventricular wall thickness. LVEF is 55%. The left ventricular diastolic function is normal. Right Ventricle The right ventricle is normal size. The right ventricular systolic function is normal. Atria The left atrium size is normal. The right atrium size is normal. Aortic Valve The aortic valve is normal in structure. No aortic regurgitation is present. There is no aortic valvular stenosis. Mitral Valve The mitral valve is normal in structure. There is no mitral valve regurgitation noted. There is no mitral valve stenosis. Tricuspid Valve The tricuspid valve is normal in structure. There is trace tricuspid valve regurgitation noted. Pulmonic Valve The pulmonary valve is normal in structure. There is no pulmonic valvular regurgitation. Great Vessels The aortic root is normal in size. The IVC is normal in size and collapses >50% with inspiration. Pericardium There is no pericardial effusion. Conclusion LVEF is 55%. DICTATED BY: ADIEL GRARIDO MD DATE: 05/23/25 103 ELECTRONICALLY SIGNED BY: ADIEL GARRIDO MD DATE: 05/23/252036 Assessment/Plan: ASSESSMENT: Acute gastroenteritis/jejunitis Iatrogenic hypotension Iatrogenic hyponatremia MARIANNE Dehydration Obstructive sleep apnea with non compliance with CPAP therapy PLAN: Discharge Instructions: Hypertension: -start with losartan 100 mg OD in the morning after discharge -blood pressure reading is consistently high above 150 mmHg systolic, add amlodipine5 mg OD daily to the regimen. -hold on carvedilol, hydrochlorothiazide, clonidine. -follow up with cloth bale header in 1-2 weeks. -monitor blood pressure 3 times a day. Obstructive sleep apnea: -be compliant with CPAP therapy while sleeping daily -CPAP therapy prevents fluctuations in blood pressure -moderate physical activity daily for weight loss Smoking cessation: -patient is currently smoking 1 1/2 cigarettes daily now -follow-up with PCP and get nicotine replacement therapy for smoking cessation Acute gastroenteritis: -patients diarrhea has been resolved, states that he is feeling well, no abdominal pain or tenderness. -adequate hydration with oral fluids, avoid outside food. -follow-up with PCP in 1-2 weeks. Home Medications: Active Scripts Losartan Potassium (Losartan Potassium) 100 Mg Tablet, 100 MG PO DAILY, #30 TAB Prov:CLAUDIA MCKEON MD 05/24/25 Reported Medications Fluticasone Propion/Salmeterol (Fluticasone-Salmeterol 100-50) 100 Mcg-50 Mcg/Dose Blst.w.dev, 1 EACH IH BID 05/22/25 Trazodone HCl (Trazodone HCl) 50 Mg Tablet, 50 MG PO HS, TAB 05/22/25 Amlodipine Besylate (Amlodipine Besylate) 2.5 Mg Tablet, 2.5 MG PO DAILY, TAB 05/22/25 Discontinued Reported Medications [Airsupra] No Conflict Check 05/23/25 Carvedilol (Coreg) 6.25 Mg Tablet, 6.25 MG PO BID, TAB 05/22/25 Losartan Potassium (Losartan Potassium) 100 Mg Tablet, 100 MG PO BID, TAB 05/22/25 Hydrochlorothiazide (Hydrochlorothiazide) 25 Mg Tablet, 25 MG PO DAILY, TAB 05/22/25 Clonidine HCl (Clonidine HCl) 0.1 Mg Tablet, 0.1 MG PO TIDP PRN for IF SBP GREATER THAN 150, TAB 05/22/25 Discontinued Scripts Budesonide (Pulmicort Flexhaler) 90 Mcg Aer.pow.ba, 1 PUFF IH BID for 10 Days, #1 EACH 0 Refills Prov:KELIN SOTO NP 02/19/25 Levofloxacin (Levofloxacin) 500 Mg Tablet, 1 TAB PO DAILY for 10 Days, #10 TAB 0 Refills Prov:KELIN SOTO NP 02/19/25 Methocarbamol (Robaxin) 750 Mg Tab, 750 MG PO TID for 7 Days, #21 TAB Prov:DEEDEE THOMASON MD 02/15/23 Methylprednisolone (Medrol) 4 Mg Tab.ds.pk, 4 MG PO as directed on pack, #1 PACK Prov:DEEDEE THOMASON MD 02/15/23 New Medications: Losartan Potassium (Losartan Potassium) 100 Mg Tablet 100 MG PO DAILY, #30 TAB Continued Medications: Amlodipine Besylate (Amlodipine Besylate) 2.5 Mg Tablet 2.5 MG PO DAILY, TAB Fluticasone Propion/Salmeterol (Fluticasone-Salmeterol 100-50) 100 Mcg-50 Mcg/Dose Blst.w.dev 1 EACH IH BID Trazodone HCl (Trazodone HCl) 50 Mg Tablet 50 MG PO HS, TAB Discontinued Medications: [Airsupra] () Carvedilol (Coreg) 6.25 Mg Tablet 6.25 MG PO BID, TAB Clonidine HCl (Clonidine HCl) 0.1 Mg Tablet 0.1 MG PO TIDP PRN for IF SBP GREATER THAN 150, TAB Hydrochlorothiazide (Hydrochlorothiazide) 25 Mg Tablet 25 MG PO DAILY, TAB Losartan Potassium (Losartan Potassium) 100 Mg Tablet 100 MG PO BID, TAB Time spent arranging discharge: 1-30 minutes ATTESTATION BY PHYSICIAN I have seen and examined the patient. I reviewed the documentation, medical decision making, and treatment plan as noted by the resident provider above. I agree with the findings and plan of care. Jose Johnson MD, ADIL SHAH QUADRI MD May 24, 2025 14:58
--- NOTE | 2025-05-24 14:59 | DS ---
Discharge Summary Assessment/Plan: ASSESSMENT: Acute gastroenteritis/jejunitis Iatrogenic hypotension Iatrogenic hyponatremia MARIANNE Dehydration Obstructive sleep apnea with non compliance with CPAP therapy PLAN: Home Medications: Reported Medications [Airsupra] No Conflict Check 05/23/25 Fluticasone Propion/Salmeterol (Fluticasone-Salmeterol 100-50) 100 Mcg-50 Mcg/Dose Blst.w.dev, 1 EACH IH BID 05/22/25 Trazodone HCl (Trazodone HCl) 50 Mg Tablet, 50 MG PO HS, TAB 05/22/25 Carvedilol (Coreg) 6.25 Mg Tablet, 6.25 MG PO BID, TAB 05/22/25 Amlodipine Besylate (Amlodipine Besylate) 2.5 Mg Tablet, 2.5 MG PO DAILY, TAB 05/22/25 Losartan Potassium (Losartan Potassium) 100 Mg Tablet, 100 MG PO BID, TAB 05/22/25 Hydrochlorothiazide (Hydrochlorothiazide) 25 Mg Tablet, 25 MG PO DAILY, TAB 05/22/25 Clonidine HCl (Clonidine HCl) 0.1 Mg Tablet, 0.1 MG PO TIDP PRN for IF SBP GREATER THAN 150, TAB 05/22/25 Discontinued Scripts Budesonide (Pulmicort Flexhaler) 90 Mcg Aer.pow.ba, 1 PUFF IH BID for 10 Days, #1 EACH 0 Refills Prov:KELIN SOTO NP 02/19/25 Levofloxacin (Levofloxacin) 500 Mg Tablet, 1 TAB PO DAILY for 10 Days, #10 TAB 0 Refills Prov:KELIN SOTO [employer] 02/19/25 Methocarbamol (Robaxin) 750 Mg Tab, 750 MG PO TID for 7 Days, #21 TAB Prov:DEEDEE THOMASON MD 02/15/23 Methylprednisolone (Medrol) 4 Mg Tab.ds.pk, 4 MG PO as directed on pack, #1 PACK Prov:DEEDEE THOMASON MD 02/15/23 NA MI MD May 24, 2025 14:59
== END 2025-05-24 15:15 | disposition home or self-care (01) | DRG 392 ==
LOC: EDH 20:47 → EDHIP 05-23 03:47 → 2AH 05-23 09:49
PROVIDERS: ADMIT Internal Medicine; ATTEND Internal Medicine
DX: K52.9 Noninfective gastroenteritis and colitis, unspecified (principal); N17.9 Acute kidney failure, unspecified; E87.1 Hypo-osmolality and hyponatremia; Z16.24 Resistance to multiple antibiotics; I95.89 Other hypotension; T50.2X5A Adverse effect of carbonic-anhydrase inhibitors, benzothiadiazides and other diuretics, initial encounter; E26.9 Hyperaldosteronism, unspecified; E66.9 Obesity, unspecified; E86.0 Dehydration; G47.33 Obstructive sleep apnea (adult) (pediatric); I10 Essential (primary) hypertension; F17.210 Nicotine dependence, cigarettes, uncomplicated; Z79.899 Other long term (current) drug therapy; Z82.49 Family history of ischemic heart disease and other diseases of the circulatory system; Z83.3 Family history of diabetes mellitus; Z91.199 Patient's noncompliance with other medical treatment and regimen due to unspecified reason; Z68.39 Body mass index [BMI] 39.0-39.9, adult
CPT/HCPCS: 36415; 71045; 74150; 74176; 74250; 76700; 80048; 80051; 80053; 80076; 81003; 82533; 82550; 82570; 83036; 83605; 83690; 83735; 84145; 84443; 84484; 85025; 85027; 86140; 93005; 93306; 93356; 94660; 96374; 96375; 99285; G0378; J1650; J2270; J2405; J2470; J7120; Q9963; J2360